=== PATIENT | male | born 1985 | race African-American/Black ===

== ENCOUNTER 2020-07-02 17:50 | Observation (INO) | payer OTHER ==
[2020-07-02 18:12] VITALS: BMI 20.1
[2020-07-02] MEDS ORDERED: ACETAMINOPHEN 1000 MG/100 ML VIAL (NON FORMULARY) IVPB ONE (18:52)
[2020-07-02] MEDS ORDERED: ACETAMINOPHEN INJECTION 100 ML IVPB ONE (19:44)
[2020-07-02 20:18] LABS: BASO % 0.6 % (0-2.0); EOS % 1.2 % (0-4.5); LYMPH % 8.7 % (8-40); MCH 28.3 pg (25.7-33.7); MCHC 32.3 g/dl (32.0-35.9); MEAN CELL VOLUME 87.7 fl (80-96); MEAN PLT VOLUME 7.2 fl (7.5-11.1); MONO % 16.6 % (3.8-10.2); NEUT % 72.9 % (42.8-82.8); PLATELET COUNT 545 K/MM3 (134-434); RBC 2.17 M/mm3 (4.00-5.60); RDW 18.7 % (11.9-15.9); WHITE BLOOD COUNT 7.4 K/mm3 (4.0-10.0)
[2020-07-02 20:25] LABS: INR 1.77 (0.83-1.09); PROTHROMBIN TIME (PATIENT) 21.4 SEC (9.7-13.0)
[2020-07-02 20:28] LABS: ACTIVATED PTT 32.1 SECONDS (25.2-36.5)
[2020-07-02 20:31] LABS: HEMOGLOBIN 6.2 GM/dL (11.7-16.9)
[2020-07-02 20:51] LABS: POTASSIUM 3.9 mmol/L (3.5-5.1)
[2020-07-02 20:53] LABS: CALCIUM 8.2 mg/dL (8.5-10.1)
[2020-07-02 20:54] LABS: ALBUMIN 1.8 g/dl (3.4-5.0); BLOOD UREA NITROGEN 21.1 mg/dL (7-18)
[2020-07-02 20:59] LABS: BILIRUBIN,TOTAL 1.2 mg/dL (0.2-1)
[2020-07-02] MEDS ORDERED: ACETAMINOPHEN 325 MG TABLET (FP) PO PRN ×2 (21:41→22:03)
[2020-07-02] MEDS ORDERED: guaiFENesin 200 MG/10 ML 10 ML UNIT-DOSE CUPS PO PRN (21:41)
[2020-07-02] MEDS: hydrALAZINE HCL 50 MG TABLET (FP) PO SCH (22:18)
[2020-07-02] MEDS: CARVEDILOL 25 MG TABLET (FP) PO SCH (22:18)
[2020-07-03 06:02] LABS: HEMATOCRIT 22.9 % (35.4-49); HEMOGLOBIN 7.2 GM/dL (11.7-16.9); MCH 27.2 pg (25.7-33.7); MCHC 31.6 g/dl (32.0-35.9); MEAN PLT VOLUME 6.9 fl (7.5-11.1); PLATELET COUNT 540 K/MM3 (134-434); RBC 2.67 M/mm3 (4.00-5.60); RDW 17.3 % (11.9-15.9); WHITE BLOOD COUNT 7.8 K/mm3 (4.0-10.0)
[2020-07-03] MEDS ORDERED: hydrALAZINE HCL 25 MG TABLET (FP) ONE (06:05)
[2020-07-03] MEDS: hydrALAZINE HCL 50 MG TABLET (FP) PO SCH ×3 (06:09→21:29)
[2020-07-03 06:19] LABS: POTASSIUM 3.9 mmol/L (3.5-5.1)
[2020-07-03 06:21] LABS: CALCIUM 8.3 mg/dL (8.5-10.1)
[2020-07-03 06:22] LABS: ALBUMIN 1.7 g/dl (3.4-5.0)
[2020-07-03 06:24] LABS: CREATININE 4.9 mg/dL (0.55-1.3)
[2020-07-03 06:26] LABS: BILIRUBIN,TOTAL 1.6 mg/dL (0.2-1); TOT PROT 7.6 g/dl (6.4-8.2)
[2020-07-03] MEDS: CALCITRIOL 0.25 MCG CAPSULE (FP) PO SCH (09:41)
[2020-07-03] MEDS: FOLIC ACID 1 MG TABLET (FP) PO SCH (09:42)
[2020-07-03] MEDS: CYANOCOBALAMIN 1,000 MCG TABLET (FP) PO SCH (09:42)
[2020-07-03] MEDS: SEVELAMER CARBONATE 800 MG TAB (FP) PO SCH ×3 (09:42→18:11)
[2020-07-03] MEDS: SERTRALINE HCL 25 MG TABLET (FP) PO SCH (09:43)
[2020-07-03] MEDS: CARVEDILOL 25 MG TABLET (FP) PO SCH ×2 (09:43→21:29)
[2020-07-03] MEDS: ISOSORBIDE MONONITRATE 30 MG TAB.SR.24H (FP) PO SCH (09:43)
[2020-07-03] MEDS: amLODIPine BESYLATE 5 MG TABLET (FP) PO SCH (09:43)
[2020-07-03] MEDS: VITAMIN B COMPLEX W/C COMBO TABLET (FP) PO SCH (14:43)
[2020-07-03] MEDS ORDERED: ONDANSETRON 4 MG/2 ML VIAL IVPUSH PRN (21:47)
[2020-07-04] MEDS: hydrALAZINE HCL 50 MG TABLET (FP) PO SCH ×3 (06:10→21:51)
[2020-07-04 06:52] LABS: BASO % 0.3 % (0-2.0); EOS % 1.5 % (0-4.5); HEMATOCRIT 25.2 % (35.4-49); HEMOGLOBIN 8.4 GM/dL (11.7-16.9); LYMPH % 9.2 % (8-40); MCH 28.4 pg (25.7-33.7); MCHC 33.5 g/dl (32.0-35.9); MEAN CELL VOLUME 84.7 fl (80-96); MEAN PLT VOLUME 6.9 fl (7.5-11.1); MONO % 13.8 % (3.8-10.2); NEUT % 75.2 % (42.8-82.8); PLATELET COUNT 533 K/MM3 (134-434); RBC 2.97 M/mm3 (4.00-5.60); WHITE BLOOD COUNT 8.1 K/mm3 (4.0-10.0)
[2020-07-04] MEDS: SEVELAMER CARBONATE 800 MG TAB (FP) PO SCH ×3 (08:35→16:43)
[2020-07-04] MEDS: VITAMIN B COMPLEX W/C COMBO TABLET (FP) PO SCH (09:16)
[2020-07-04] MEDS: CYANOCOBALAMIN 1,000 MCG TABLET (FP) PO SCH (09:17)
[2020-07-04] MEDS: CARVEDILOL 25 MG TABLET (FP) PO SCH ×2 (09:17→21:51)
[2020-07-04] MEDS: ISOSORBIDE MONONITRATE 30 MG TAB.SR.24H (FP) PO SCH (09:17)
[2020-07-04] MEDS: CALCITRIOL 0.25 MCG CAPSULE (FP) PO SCH (09:17)
[2020-07-04] MEDS: SERTRALINE HCL 25 MG TABLET (FP) PO SCH (09:17)
[2020-07-04] MEDS: FOLIC ACID 1 MG TABLET (FP) PO SCH (09:18)
[2020-07-04] MEDS: amLODIPine BESYLATE 5 MG TABLET (FP) PO SCH (09:18)
[2020-07-05] MEDS: hydrALAZINE HCL 50 MG TABLET (FP) PO SCH ×2 (06:20→17:25)
[2020-07-05] MEDS: SEVELAMER CARBONATE 800 MG TAB (FP) PO SCH ×3 (08:27→17:25)
[2020-07-05] MEDS ORDERED: PT OWN MED DRAWER 7, Y5N ONE (10:27)
[2020-07-05] MEDS: ISOSORBIDE MONONITRATE 30 MG TAB.SR.24H (FP) PO SCH (10:29)
[2020-07-05] MEDS: FOLIC ACID 1 MG TABLET (FP) PO SCH (10:29)
[2020-07-05] MEDS: CARVEDILOL 25 MG TABLET (FP) PO SCH (10:29)
[2020-07-05] MEDS: CALCITRIOL 0.25 MCG CAPSULE (FP) PO SCH (10:30)
[2020-07-05] MEDS: amLODIPine BESYLATE 5 MG TABLET (FP) PO SCH (10:30)
[2020-07-05] MEDS: CYANOCOBALAMIN 1,000 MCG TABLET (FP) PO SCH (10:31)
[2020-07-05] MEDS: VITAMIN B COMPLEX W/C COMBO TABLET (FP) PO SCH (10:32)
[2020-07-05] MEDS: SERTRALINE HCL 25 MG TABLET (FP) PO SCH (10:33)
[2020-07-05] MEDS ORDERED: SODIUM CHLORIDE 250 ML IV PRN (13:05)
[2020-07-05] MEDS ORDERED: EPOETIN ALFA 10,000 UNIT/1 ML VIAL IVPUSH ONE (13:15)
[2020-07-05] MEDS ORDERED: EPOETIN ALFA-EPBX 10,000 UNIT/ML VIAL IVPUSH ONE (13:15)
[2020-07-05 19:37] VITALS: BP 136/83; PULSE 84; TEMP 98.4
[2020-07-06] MEDS ORDERED: ERGOCALCIFEROL (VIT D2) 50,000 UNIT (1.25 MG) CAPSULE PO SCH (10:00)
[2020-07-10 01:07] LABS: HEP B CORE AB, TOT Negative (Negative)
== END 2020-07-05 20:12 ==
LOC: JER 17:50 → INTOOBSV 21:36 → UNDOADMOB 21:36 → JERBED 21:36 → J8W 07-03 08:22 → JERBED 07-03 08:22 → J8W 07-03 10:11 → JERBED 07-03 10:11 → J8W 07-05 13:55 → JERBED 07-05 13:55
PROVIDERS: ADMIT Internal Medicine; ATTEND Internal Medicine
PROC: 3E033NZ Introduction of Analgesics, Hypnotics, Sedatives into Peripheral Vein, Percutaneous Approach (ICD-10-PCS; principal; 2020-07-05)
DX: I13.11 Hypertensive heart and chronic kidney disease without heart failure, with stage 5 chronic kidney disease, or end stage renal disease (principal); N18.6 End stage renal disease; Z99.2 Dependence on renal dialysis; D64.9 Anemia, unspecified; F32.9 Major depressive disorder, single episode, unspecified; R18.8 Other ascites; I25.10 Atherosclerotic heart disease of native coronary artery without angina pectoris
CPT/HCPCS: 36415; 36430; 71046-TC-FY; 80053; 82607; 82746; 83540; 83550; 83605; 84443; 85025; 85027; 85610; 85730; 86704; 86706; 86707; 86708; 86709; 86803; 86850; 86900; 86901; 86922; 87040; 87340; 87804; 93005; 93010; 96360; 99285-25; C9803; G0378; J0131; P9038; P9058; Q5106; U0003

== ENCOUNTER 2020-09-27 18:25 | Emergency (ER) | payer OTHER ==
[2020-09-27 19:17] VITALS: BMI 27.2
[2020-09-27 20:23] LABS: BASO % 0.8 % (0-2.0); EOS % 2.9 % (0-4.5); HEMATOCRIT 18.9 % (35.4-49); MCH 29.2 pg (25.7-33.7); MCHC 34.2 g/dl (32.0-35.9); MEAN CELL VOLUME 85.4 fl (80-96); MEAN PLT VOLUME 6.7 fl (7.5-11.1); MONO % 13.3 % (3.8-10.2); PLATELET COUNT 424 K/MM3 (134-434); RBC 2.21 M/mm3 (4.00-5.60); RDW 17.8 % (11.9-15.9); RETICULOCYTES 1.79 % (0.5-1.5); WHITE BLOOD COUNT 6.7 K/mm3 (4.0-10.0)
[2020-09-27 20:30] LABS: INR 1.63 (0.83-1.09); PROTHROMBIN TIME (PATIENT) 19.4 SEC (9.7-13.0)
[2020-09-27 20:31] LABS: HEMOGLOBIN 6.5 GM/dL (11.7-16.9)
[2020-09-27 20:33] LABS: ACTIVATED PTT 32.9 SECONDS (25.2-36.5)
[2020-09-27 20:42] LABS: CHLORIDE 96 mmol/L (98-107); POTASSIUM 3.8 mmol/L (3.5-5.1); SODIUM 133 mmol/L (136-145)
[2020-09-27 20:43] LABS: ANION GAP 8 MMOL/L (8-16); BLOOD UREA NITROGEN 24.9 mg/dL (7-18); CALCIUM 8.8 mg/dL (8.5-10.1); CO2 30 mmol/L (21-32)
[2020-09-27 20:44] LABS: GLUCOSE,RANDOM 112 mg/dL (74-106)
[2020-09-27 20:46] LABS: BILIRUBIN,DIRECT 0.5 mg/dL (0.0-0.2)
[2020-09-27 20:48] LABS: BILIRUBIN,TOTAL 0.7 mg/dL (0.2-1)
[2020-09-27 20:49] LABS: CREATININE 4.6 mg/dL (0.55-1.3); IRON SERUM 29 ug/dL (50-175); SGOT/AST 14 U/L (15-37); SGPT/ALT 15 U/L (13-61); TOTAL IRON BINDING CAPACITY 123 ug/dL (250-450)
[2020-09-27 20:50] LABS: ALK PHOS 695 U/L (45-117); TOT PROT 8.1 g/dl (6.4-8.2)
[2020-09-27 21:06] LABS: LDH 166 U/L (87-246)
[2020-09-28 09:38] VITALS: BP 147/94; PULSE 91; TEMP 98.5
== END 2020-09-28 09:30 ==
LOC: JER 18:25
DX: N18.6 End stage renal disease (principal); R18.8 Other ascites; D64.9 Anemia, unspecified
CPT/HCPCS: 36415; 36430; 71046-TC-FY; 80053; 82248; 82550; 82607; 82728; 82746; 83010; 83540; 83550; 83615; 84443; 84484; 85025; 85045; 85610; 85730; 86850; 86900; 86901; 86922; 93005; 93010; 99284-25; C9803; P9058; U0003

== ENCOUNTER → 2020-10-12 | Day surgery (SDC) | payer OTHER ==
[2020-10-12 14:39] LABS: BF WBC & OTHER NUCLEATED CELLS 10194 /mm3
[2020-10-12 15:43] LABS: BODY FLUID MONOCYTE 4 %
[2020-10-12 15:44] LABS: BODY FLUID MACROPHAGES 6 %
[2020-10-13 14:12] LABS: BODY FLUID ALBUMIN 1.9 g/dL (Not Estab.)
== END | disposition home or self-care (01) ==
LOC: JRADIR 11:06
PROVIDERS: ATTEND Internal Medicine
PROC: 0W9G3ZX Drainage of Peritoneal Cavity, Percutaneous Approach, Diagnostic (ICD-10-PCS; principal; 2020-10-12)
DX: R18.8 Other ascites (principal)
CPT/HCPCS: 36415; 49083; 76942-TC; 82042; 82150; 82465; 82945; 83615; 83986; 84157; 84478; 87070; 87075; 87102; 87116; 87205; 87206; 87210; 88108; 88305-TC

== ENCOUNTER 2020-10-29 23:19 | Inpatient (IN) | payer OTHER ==
[2020-10-30] MEDS ORDERED: FAMOTIDINE 20 MG/50 ML IVPB 20 MG/50 ML MG IVPB ONE ×2 (01:31→02:19)
[2020-10-30 02:56] LABS: VENOUS BASE EXCESS 0.7 mmol/L (-2-2); VENOUS O2 SATURATION 90.1 % (70-80); VENOUS PCO2 38.7 mmHg (38-52); VENOUS PH 7.428 (7.310-7.410)
[2020-10-30 03:02] LABS: BASO % 0.7 % (0-2.0); EOS % 0.3 % (0-4.5); HEMATOCRIT 29.3 % (35.4-49); HEMOGLOBIN 10.1 GM/dL (11.7-16.9); LYMPH % 4.4 % (8-40); MCHC 34.3 g/dl (32.0-35.9); MEAN CELL VOLUME 87.4 fl (80-96); MEAN PLT VOLUME 7.3 fl (7.5-11.1); MONO % 12.1 % (3.8-10.2); NEUT % 82.5 % (42.8-82.8); PLATELET COUNT 475 K/MM3 (134-434); RBC 3.35 M/mm3 (4.00-5.60); RDW 18.8 % (11.9-15.9); WHITE BLOOD COUNT 7.3 K/mm3 (4.0-10.0)
[2020-10-30 03:09] LABS: CALCIUM 9.1 mg/dL (8.5-10.1)
[2020-10-30 03:10] LABS: ALBUMIN 2.3 g/dl (3.4-5.0); BLOOD UREA NITROGEN 28.8 mg/dL (7-18); MAGNESIUM 2.5 mg/dL (1.8-2.4)
[2020-10-30 03:12] LABS: CREATININE 5.3 mg/dL (0.55-1.3)
[2020-10-30 03:13] LABS: BILIRUBIN,TOTAL 1.4 mg/dL (0.2-1); TOT PROT 9.2 g/dl (6.4-8.2)
[2020-10-30 03:20] LABS: INR 1.47 (0.83-1.09); PROTHROMBIN TIME (PATIENT) 17.6 SEC (9.7-13.0)
[2020-10-30 03:23] LABS: ACTIVATED PTT 35.7 SECONDS (25.2-36.5)
[2020-10-30] MEDS ORDERED: ACETAMINOPHEN 325 MG TABLET (FP) PO PRN (12:07)
[2020-10-30] MEDS: hydrALAZINE HCL 50 MG TABLET (FP) PO SCH ×2 (14:02→22:19)
[2020-10-30] MEDS: SEVELAMER CARBONATE 800 MG TAB (FP) PO SCH ×2 (14:02→17:50)
[2020-10-30] MEDS ORDERED: GABAPENTIN 100 MG CAPSULE ONE (22:11)
[2020-10-30] MEDS ORDERED: CARVEDILOL 12.5 MG TABLET (FP) ONE (22:11)
[2020-10-30] MEDS ORDERED: hydrALAZINE HCL 25 MG TABLET (FP) ONE (22:11)
[2020-10-30] MEDS: CARVEDILOL 25 MG TABLET (FP) PO SCH (22:19)
[2020-10-30] MEDS: GABAPENTIN 100 MG CAPSULE PO SCH (22:19)
[2020-10-31] MEDS: hydrALAZINE HCL 50 MG TABLET (FP) PO SCH ×3 (05:55→21:05)
[2020-10-31] MEDS: CALCITRIOL 0.25 MCG CAPSULE (FP) PO SCH (09:36)
[2020-10-31] MEDS: CARVEDILOL 25 MG TABLET (FP) PO SCH ×2 (09:37→21:04)
[2020-10-31] MEDS: amLODIPine BESYLATE 5 MG TABLET (FP) PO SCH (09:37)
[2020-10-31] MEDS: SERTRALINE HCL 25 MG TABLET (FP) PO SCH (09:37)
[2020-10-31] MEDS: ISOSORBIDE MONONITRATE 30 MG TAB.SR.24H (FP) PO SCH (09:37)
[2020-10-31] MEDS: GABAPENTIN 100 MG CAPSULE PO SCH ×2 (09:37→21:04)
[2020-10-31] MEDS: SEVELAMER CARBONATE 800 MG TAB (FP) PO SCH ×3 (09:37→16:34)
[2020-10-31] MEDS ORDERED: SODIUM CHLORIDE 250 ML IV PRN (11:00)
[2020-10-31] MEDS ORDERED: PHYTONADIONE 5 MG TABLET PO ONE (12:00)
[2020-11-01] MEDS: hydrALAZINE HCL 50 MG TABLET (FP) PO SCH ×3 (05:22→21:46)
[2020-11-01] MEDS: SEVELAMER CARBONATE 800 MG TAB (FP) PO SCH ×3 (09:35→17:10)
[2020-11-01 09:52] LABS: HEMATOCRIT 28.7 % (35.4-49); HEMOGLOBIN 9.7 GM/dL (11.7-16.9); MCH 29.2 pg (25.7-33.7); MCHC 33.7 g/dl (32.0-35.9); MEAN CELL VOLUME 86.6 fl (80-96); MEAN PLT VOLUME 6.6 fl (7.5-11.1); PLATELET COUNT 405 K/MM3 (134-434); RBC 3.32 M/mm3 (4.00-5.60); RDW 18.5 % (11.9-15.9)
[2020-11-01] MEDS: SERTRALINE HCL 25 MG TABLET (FP) PO SCH (10:00)
[2020-11-01] MEDS: CARVEDILOL 25 MG TABLET (FP) PO SCH ×2 (10:00→21:46)
[2020-11-01] MEDS: ALBUMIN HUMAN 25% 12.5 GM/50 ML VIAL IVPB SCH ×4 (10:00→11:30)
[2020-11-01] MEDS: CALCITRIOL 0.25 MCG CAPSULE (FP) PO SCH (10:00)
[2020-11-01] MEDS: GABAPENTIN 100 MG CAPSULE PO SCH ×2 (10:00→21:46)
[2020-11-01] MEDS: amLODIPine BESYLATE 5 MG TABLET (FP) PO SCH (10:00)
[2020-11-01] MEDS: ISOSORBIDE MONONITRATE 30 MG TAB.SR.24H (FP) PO SCH (10:00)
[2020-11-01 10:11] LABS: CHLORIDE 93 mmol/L (98-107); SODIUM 127 mmol/L (136-145)
[2020-11-01 10:21] LABS: CALCIUM 8.6 mg/dL (8.5-10.1)
[2020-11-01 10:22] LABS: ALBUMIN 2.5 g/dl (3.4-5.0); ANION GAP 13 MMOL/L (8-16); CO2 21 mmol/L (21-32); GLUCOSE,RANDOM 133 mg/dL (74-106)
[2020-11-01 10:25] LABS: SGOT/AST 7 U/L (15-37); SGPT/ALT 16 U/L (13-61)
[2020-11-01 10:27] LABS: TOT PROT 8.5 g/dl (6.4-8.2)
[2020-11-01 10:28] LABS: ALK PHOS 614 U/L (45-117); BLOOD UREA NITROGEN 66.6 mg/dL (7-18); CREATININE 8.8 mg/dL (0.55-1.3)
[2020-11-01 12:26] LABS: LDH 136 U/L (87-246)
[2020-11-02] MEDS: hydrALAZINE HCL 50 MG TABLET (FP) PO SCH ×3 (06:18→21:22)
[2020-11-02] MEDS ORDERED: PT OWN MED DRAWER 7, Y5N ONE (13:40)
[2020-11-02] MEDS: ISOSORBIDE MONONITRATE 30 MG TAB.SR.24H (FP) PO SCH (13:50)
[2020-11-02] MEDS: amLODIPine BESYLATE 5 MG TABLET (FP) PO SCH (13:50)
[2020-11-02] MEDS: GABAPENTIN 100 MG CAPSULE PO SCH ×2 (13:50→21:22)
[2020-11-02] MEDS: CARVEDILOL 25 MG TABLET (FP) PO SCH ×2 (13:50→21:22)
[2020-11-02] MEDS: SEVELAMER CARBONATE 800 MG TAB (FP) PO SCH ×3 (13:51→18:05)
[2020-11-02] MEDS: CALCITRIOL 0.25 MCG CAPSULE (FP) PO SCH (13:51)
[2020-11-02] MEDS: SERTRALINE HCL 25 MG TABLET (FP) PO SCH (13:51)
[2020-11-02 15:30] LABS: BF WBC & OTHER NUCLEATED CELLS 1530 /mm3; BODY FLUID MACROPHAGES 10 %; BODY FLUID MESOTHELIAL 1 %; BODY FLUID MONOCYTE 5 %
[2020-11-02] MEDS ORDERED: DEXTROSE 5%-WATER 100 ML IVPB ONE (17:55)
[2020-11-02] MEDS: CEFTRIAXONE 2 GM in DEXTROSE 5%-WATER 100 ML IVPB SCH (18:05)
[2020-11-03] MEDS: hydrALAZINE HCL 50 MG TABLET (FP) PO SCH ×3 (05:34→21:10)
[2020-11-03] MEDS ORDERED: DEXTROSE 5%-WATER 100 ML IVPB ONE (11:36)
[2020-11-03] MEDS ORDERED: PT OWN MED DRAWER 7, Y5N ONE (11:36)
[2020-11-03] MEDS: ISOSORBIDE MONONITRATE 30 MG TAB.SR.24H (FP) PO SCH (11:38)
[2020-11-03] MEDS: CARVEDILOL 25 MG TABLET (FP) PO SCH ×2 (11:38→21:10)
[2020-11-03] MEDS: CALCITRIOL 0.25 MCG CAPSULE (FP) PO SCH (11:39)
[2020-11-03] MEDS: SEVELAMER CARBONATE 800 MG TAB (FP) PO SCH ×3 (11:39→18:29)
[2020-11-03] MEDS: amLODIPine BESYLATE 5 MG TABLET (FP) PO SCH (11:39)
[2020-11-03] MEDS: GABAPENTIN 100 MG CAPSULE PO SCH ×2 (11:39→21:10)
[2020-11-03] MEDS: CEFTRIAXONE 2 GM in DEXTROSE 5%-WATER 100 ML IVPB SCH (11:40)
[2020-11-03] MEDS: SERTRALINE HCL 25 MG TABLET (FP) PO SCH (11:40)
[2020-11-03 14:49] LABS: BASO % 0.5 % (0-2.0); EOS % 1.1 % (0-4.5); HEMATOCRIT 26.2 % (35.4-49); HEMOGLOBIN 8.7 GM/dL (11.7-16.9); LYMPH % 6.7 % (8-40); MCH 28.9 pg (25.7-33.7); MCHC 33.2 g/dl (32.0-35.9); MEAN PLT VOLUME 6.7 fl (7.5-11.1); MONO % 11.4 % (3.8-10.2); NEUT % 80.3 % (42.8-82.8); PLATELET COUNT 400 K/MM3 (134-434); RBC 3.01 M/mm3 (4.00-5.60); RDW 18.4 % (11.9-15.9)
[2020-11-03] MEDS ORDERED: SODIUM CHLORIDE 250 ML IV PRN (14:53)
[2020-11-03] MEDS ORDERED: EPOETIN ALFA-EPBX 3,000 UNIT/ML VIAL SQ ONE (15:00)
[2020-11-03 15:10] LABS: CHLORIDE 91 mmol/L (98-107); SODIUM 127 mmol/L (136-145)
[2020-11-03 15:12] LABS: ALBUMIN 2.1 g/dl (3.4-5.0); ANION GAP 12 MMOL/L (8-16); BLOOD UREA NITROGEN 58.4 mg/dL (7-18); CALCIUM 8.4 mg/dL (8.5-10.1); CO2 24 mmol/L (21-32)
[2020-11-03 15:13] LABS: GLUCOSE,RANDOM 136 mg/dL (74-106)
[2020-11-03 15:15] LABS: SGOT/AST 7 U/L (15-37); SGPT/ALT 12 U/L (13-61)
[2020-11-03 15:17] LABS: BILIRUBIN,TOTAL 0.6 mg/dL (0.2-1); TOT PROT 7.4 g/dl (6.4-8.2)
[2020-11-03 15:21] LABS: ALK PHOS 535 U/L (45-117); CREATININE 8.2 mg/dL (0.55-1.3)
[2020-11-04] MEDS: hydrALAZINE HCL 50 MG TABLET (FP) PO SCH ×3 (05:54→21:23)
[2020-11-04] MEDS ORDERED: DEXTROSE 5%-WATER 100 ML IVPB ONE (10:29)
[2020-11-04] MEDS: CALCITRIOL 0.25 MCG CAPSULE (FP) PO SCH (10:50)
[2020-11-04] MEDS: GABAPENTIN 100 MG CAPSULE PO SCH ×2 (10:50→21:23)
[2020-11-04] MEDS: ISOSORBIDE MONONITRATE 30 MG TAB.SR.24H (FP) PO SCH (10:51)
[2020-11-04] MEDS: CEFTRIAXONE 2 GM in DEXTROSE 5%-WATER 100 ML IVPB SCH (10:51)
[2020-11-04] MEDS: amLODIPine BESYLATE 5 MG TABLET (FP) PO SCH (10:51)
[2020-11-04] MEDS: CARVEDILOL 25 MG TABLET (FP) PO SCH ×2 (10:51→21:23)
[2020-11-04] MEDS: SERTRALINE HCL 25 MG TABLET (FP) PO SCH (10:51)
[2020-11-04] MEDS: SEVELAMER CARBONATE 800 MG TAB (FP) PO SCH ×3 (10:54→16:51)
[2020-11-04] MEDS ORDERED: SODIUM CHLORIDE 250 ML IV PRN (11:05)
[2020-11-04 13:36] LABS: HIV INTERPRETATION NEGATIVE (NEGATIVE)
[2020-11-05] MEDS: hydrALAZINE HCL 50 MG TABLET (FP) PO SCH ×3 (05:30→21:00)
[2020-11-05 08:07] LABS: BASO % 0.5 % (0-2.0); EOS % 3.1 % (0-4.5); HEMATOCRIT 27.5 % (35.4-49); HEMOGLOBIN 9.3 GM/dL (11.7-16.9); LYMPH % 6.2 % (8-40); MCH 29.3 pg (25.7-33.7); MCHC 33.9 g/dl (32.0-35.9); MEAN CELL VOLUME 86.4 fl (80-96); MEAN PLT VOLUME 6.6 fl (7.5-11.1); MONO % 12.9 % (3.8-10.2); NEUT % 77.3 % (42.8-82.8); PLATELET COUNT 393 K/MM3 (134-434); RBC 3.18 M/mm3 (4.00-5.60); RDW 18.7 % (11.9-15.9); WHITE BLOOD COUNT 6.2 K/mm3 (4.0-10.0)
[2020-11-05 08:52] LABS: ALBUMIN 2.4 g/dl (3.4-5.0); BILIRUBIN,TOTAL 0.6 mg/dL (0.2-1); BLOOD UREA NITROGEN 48.7 mg/dL (7-18); CALCIUM 8.5 mg/dL (8.5-10.1); CREATININE 7.3 mg/dL (0.55-1.3); TOT PROT 8.3 g/dl (6.4-8.2)
[2020-11-05] MEDS: SEVELAMER CARBONATE 800 MG TAB (FP) PO SCH ×3 (09:07→16:29)
[2020-11-05] MEDS: CARVEDILOL 25 MG TABLET (FP) PO SCH ×2 (10:00→21:00)
[2020-11-05] MEDS: CALCITRIOL 0.25 MCG CAPSULE (FP) PO SCH (10:00)
[2020-11-05] MEDS: ISOSORBIDE MONONITRATE 30 MG TAB.SR.24H (FP) PO SCH (10:00)
[2020-11-05] MEDS: amLODIPine BESYLATE 5 MG TABLET (FP) PO SCH (10:00)
[2020-11-05] MEDS: SERTRALINE HCL 25 MG TABLET (FP) PO SCH (10:00)
[2020-11-05] MEDS: GABAPENTIN 100 MG CAPSULE PO SCH ×2 (10:00→21:00)
[2020-11-05] MEDS ORDERED: EPOETIN ALFA-EPBX 10,000 UNIT/ML VIAL SQ ONE (11:05)
[2020-11-05] MEDS: CEFTRIAXONE 2 GM in DEXTROSE 5%-WATER 100 ML IVPB SCH (15:00)
[2020-11-05 15:11] LABS: BODY FLUID ALBUMIN 1.9 g/dL (Not Estab.)
[2020-11-06] MEDS: hydrALAZINE HCL 50 MG TABLET (FP) PO SCH ×3 (05:22→22:36)
[2020-11-06] MEDS ORDERED: PT OWN MED DRAWER 7, Y5N ONE ×3 (09:49→21:24)
[2020-11-06] MEDS ORDERED: DEXTROSE 5%-WATER 100 ML IVPB ONE (09:50)
[2020-11-06] MEDS: GABAPENTIN 100 MG CAPSULE PO SCH ×2 (10:05→22:35)
[2020-11-06] MEDS: ISOSORBIDE MONONITRATE 30 MG TAB.SR.24H (FP) PO SCH (10:05)
[2020-11-06] MEDS: SERTRALINE HCL 25 MG TABLET (FP) PO SCH (10:05)
[2020-11-06] MEDS: SEVELAMER CARBONATE 800 MG TAB (FP) PO SCH ×3 (10:05→17:37)
[2020-11-06] MEDS: amLODIPine BESYLATE 5 MG TABLET (FP) PO SCH (10:05)
[2020-11-06] MEDS: CEFTRIAXONE 2 GM in DEXTROSE 5%-WATER 100 ML IVPB SCH (10:05)
[2020-11-06] MEDS: CARVEDILOL 25 MG TABLET (FP) PO SCH ×2 (10:05→22:35)
[2020-11-06] MEDS: CALCITRIOL 0.25 MCG CAPSULE (FP) PO SCH (10:05)
[2020-11-06 13:53] LABS: N-TERMINAL BNP 59634.3 pg/ml (5-125)
[2020-11-06] MEDS: SACUBITRIL/VALSARTAN 24 MG-26 MG TABLET PO SCH ×2 (14:27→22:35)
[2020-11-07] MEDS: hydrALAZINE HCL 50 MG TABLET (FP) PO SCH ×3 (05:58→21:28)
[2020-11-07] MEDS ORDERED: PT OWN MED DRAWER 7, Y5N ONE ×2 (08:54→21:04)
[2020-11-07] MEDS ORDERED: DEXTROSE 5%-WATER 100 ML IVPB ONE (08:54)
[2020-11-07] MEDS: SEVELAMER CARBONATE 800 MG TAB (FP) PO SCH ×3 (08:59→16:51)
[2020-11-07] MEDS: GABAPENTIN 100 MG CAPSULE PO SCH ×2 (09:01→21:28)
[2020-11-07] MEDS: CEFTRIAXONE 2 GM in DEXTROSE 5%-WATER 100 ML IVPB SCH (09:02)
[2020-11-07] MEDS: amLODIPine BESYLATE 5 MG TABLET (FP) PO SCH (09:02)
[2020-11-07] MEDS: ISOSORBIDE MONONITRATE 30 MG TAB.SR.24H (FP) PO SCH (09:02)
[2020-11-07] MEDS: CARVEDILOL 25 MG TABLET (FP) PO SCH ×2 (09:02→21:28)
[2020-11-07] MEDS: CALCITRIOL 0.25 MCG CAPSULE (FP) PO SCH (09:02)
[2020-11-07] MEDS: SACUBITRIL/VALSARTAN 24 MG-26 MG TABLET PO SCH ×2 (09:02→21:28)
[2020-11-07] MEDS: SERTRALINE HCL 25 MG TABLET (FP) PO SCH (09:02)
[2020-11-08] MEDS: hydrALAZINE HCL 50 MG TABLET (FP) PO SCH ×3 (06:55→21:59)
[2020-11-08] MEDS ORDERED: EPOETIN ALFA-EPBX 4,000 UNIT/ML VIAL SQ ONE (08:49)
[2020-11-08] MEDS ORDERED: SODIUM CHLORIDE 250 ML IV PRN (08:50)
[2020-11-08 09:05] LABS: HEMATOCRIT 25.6 % (35.4-49); HEMOGLOBIN 8.8 GM/dL (11.7-16.9); MCH 29.8 pg (25.7-33.7); MCHC 34.5 g/dl (32.0-35.9); MEAN CELL VOLUME 86.4 fl (80-96); MEAN PLT VOLUME 7.2 fl (7.5-11.1); PLATELET COUNT 378 K/MM3 (134-434); RBC 2.96 M/mm3 (4.00-5.60); RDW 18.2 % (11.9-15.9); WHITE BLOOD COUNT 5.9 K/mm3 (4.0-10.0)
[2020-11-08 09:27] LABS: CHLORIDE 96 mmol/L (98-107); SODIUM 132 mmol/L (136-145)
[2020-11-08 09:39] LABS: GLUCOSE,RANDOM 88 mg/dL (74-106)
[2020-11-08 09:42] LABS: SGOT/AST 15 U/L (15-37); SGPT/ALT 15 U/L (13-61)
[2020-11-08 09:43] LABS: BILIRUBIN,TOTAL 0.5 mg/dL (0.2-1)
[2020-11-08 09:48] LABS: CALCIUM 8.5 mg/dL (8.5-10.1); CO2 26 mmol/L (21-32)
[2020-11-08 09:49] LABS: ALK PHOS 444 U/L (45-117); ANION GAP 10 MMOL/L (8-16); BLOOD UREA NITROGEN 78.6 mg/dL (7-18); CREATININE 9.8 mg/dL (0.55-1.3)
[2020-11-08] MEDS ORDERED: DEXTROSE 5%-WATER 100 ML IVPB ONE (10:50)
[2020-11-08] MEDS: SEVELAMER CARBONATE 800 MG TAB (FP) PO SCH ×3 (10:52→18:13)
[2020-11-08] MEDS: ISOSORBIDE MONONITRATE 30 MG TAB.SR.24H (FP) PO SCH (10:53)
[2020-11-08] MEDS: amLODIPine BESYLATE 5 MG TABLET (FP) PO SCH (10:53)
[2020-11-08] MEDS: CARVEDILOL 25 MG TABLET (FP) PO SCH ×2 (10:53→21:59)
[2020-11-08] MEDS: CEFTRIAXONE 2 GM in DEXTROSE 5%-WATER 100 ML IVPB SCH (10:53)
[2020-11-08] MEDS: GABAPENTIN 100 MG CAPSULE PO SCH ×2 (10:53→21:59)
[2020-11-08] MEDS: CALCITRIOL 0.25 MCG CAPSULE (FP) PO SCH (10:54)
[2020-11-08] MEDS: SERTRALINE HCL 25 MG TABLET (FP) PO SCH (10:54)
[2020-11-08] MEDS ORDERED: PT OWN MED DRAWER 7, Y5N ONE ×2 (14:50→20:43)
[2020-11-08] MEDS: SACUBITRIL/VALSARTAN 24 MG-26 MG TABLET PO SCH ×2 (14:50→21:59)
[2020-11-09] MEDS: hydrALAZINE HCL 50 MG TABLET (FP) PO SCH ×3 (06:11→21:13)
[2020-11-09] MEDS: SEVELAMER CARBONATE 800 MG TAB (FP) PO SCH ×3 (09:07→19:50)
[2020-11-09] MEDS ORDERED: PT OWN MED DRAWER 7, Y5N ONE ×2 (09:10→20:35)
[2020-11-09] MEDS ORDERED: DEXTROSE 5%-WATER - 50 ML IVPB ONE (09:10)
[2020-11-09] MEDS ORDERED: cefTRIAXone SODIUM 1 GM VIAL ONE (09:10)
[2020-11-09] MEDS: ISOSORBIDE MONONITRATE 30 MG TAB.SR.24H (FP) PO SCH (09:13)
[2020-11-09] MEDS: GABAPENTIN 100 MG CAPSULE PO SCH ×2 (09:13→21:13)
[2020-11-09] MEDS: SACUBITRIL/VALSARTAN 24 MG-26 MG TABLET PO SCH ×2 (09:13→21:13)
[2020-11-09] MEDS: SERTRALINE HCL 25 MG TABLET (FP) PO SCH (09:13)
[2020-11-09] MEDS: CARVEDILOL 25 MG TABLET (FP) PO SCH ×2 (09:13→21:13)
[2020-11-09] MEDS: CALCITRIOL 0.25 MCG CAPSULE (FP) PO SCH (09:13)
[2020-11-09] MEDS: amLODIPine BESYLATE 5 MG TABLET (FP) PO SCH (09:13)
[2020-11-09] MEDS: CEFTRIAXONE 1 GM in DEXTROSE 5%-WATER - 50 ML IVPB SCH (09:14)
[2020-11-09] MEDS ORDERED: SODIUM CHLORIDE 250 ML IV PRN ×2 (11:41→16:05)
[2020-11-09 14:00] LABS: INR 1.42 (0.83-1.09); PROTHROMBIN TIME (PATIENT) 17.3 SEC (9.7-13.0)
[2020-11-09 14:20] LABS: ALBUMIN 2.2 g/dl (3.4-5.0)
[2020-11-09 14:23] LABS: BILIRUBIN,DIRECT 0.4 mg/dL (0.0-0.2)
[2020-11-09 14:25] LABS: BILIRUBIN,TOTAL 0.5 mg/dL (0.2-1); TOT PROT 7.7 g/dl (6.4-8.2)
[2020-11-09] MEDS ORDERED: EPOETIN ALFA-EPBX 4,000 UNIT/ML VIAL SQ ONE (16:05)
[2020-11-10] MEDS: hydrALAZINE HCL 50 MG TABLET (FP) PO SCH ×3 (05:28→21:17)
[2020-11-10] MEDS: SEVELAMER CARBONATE 800 MG TAB (FP) PO SCH ×3 (07:53→16:33)
[2020-11-10 08:38] LABS: HEMATOCRIT 28.8 % (35.4-49); HEMOGLOBIN 9.6 GM/dL (11.7-16.9); MCH 29.3 pg (25.7-33.7); MCHC 33.2 g/dl (32.0-35.9); MEAN CELL VOLUME 88.3 fl (80-96); PLATELET COUNT 371 K/MM3 (134-434); RBC 3.26 M/mm3 (4.00-5.60); RDW 18.2 % (11.9-15.9); WHITE BLOOD COUNT 5.2 K/mm3 (4.0-10.0)
[2020-11-10] MEDS ORDERED: PT OWN MED DRAWER 7, Y5N ONE ×2 (08:53→20:16)
[2020-11-10] MEDS: CARVEDILOL 25 MG TABLET (FP) PO SCH ×2 (09:01→21:17)
[2020-11-10] MEDS: ISOSORBIDE MONONITRATE 30 MG TAB.SR.24H (FP) PO SCH (09:01)
[2020-11-10] MEDS: SACUBITRIL/VALSARTAN 24 MG-26 MG TABLET PO SCH ×2 (09:01→21:17)
[2020-11-10] MEDS: amLODIPine BESYLATE 5 MG TABLET (FP) PO SCH (09:01)
[2020-11-10] MEDS: GABAPENTIN 100 MG CAPSULE PO SCH ×2 (09:06→21:17)
[2020-11-10] MEDS: SERTRALINE HCL 25 MG TABLET (FP) PO SCH (09:07)
[2020-11-10] MEDS: CALCITRIOL 0.25 MCG CAPSULE (FP) PO SCH (09:07)
[2020-11-10] MEDS ORDERED: cefTRIAXone SODIUM 1 GM VIAL ONE ×2 (09:10→09:11)
[2020-11-10] MEDS ORDERED: DEXTROSE 5%-WATER - 50 ML IVPB ONE (09:11)
[2020-11-10] MEDS ORDERED: ONDANSETRON 4 MG/2 ML VIAL IVPUSH PRN ×2 (09:12→12:42)
[2020-11-10] MEDS ORDERED: SODIUM CHLORIDE 1,000 ML IV SCH ×2 (09:15→12:42)
[2020-11-10 09:23] LABS: ALBUMIN 2.3 g/dl (3.4-5.0); CALCIUM 8.9 mg/dL (8.5-10.1)
[2020-11-10] MEDS ORDERED: ROCURONIUM BROMIDE 50 MG/5 ML SYRINGE ONE ×2 (09:24→10:38)
[2020-11-10] MEDS ORDERED: PROPOFOL 20 ML ONE (09:24)
[2020-11-10] MEDS ORDERED: MIDAZOLAM HCL 2 MG/2 ML SINGLE DOSE VIAL ONE (09:24)
[2020-11-10] MEDS ORDERED: LIDOCAINE HCL/PF 2% SDV 5ML VIAL ONE (09:24)
[2020-11-10 09:28] LABS: BILIRUBIN,TOTAL 0.6 mg/dL (0.2-1); TOT PROT 8.2 g/dl (6.4-8.2)
[2020-11-10 09:32] LABS: BLOOD UREA NITROGEN 27.9 mg/dL (7-18)
[2020-11-10] MEDS ORDERED: cefTRIAXone SODIUM 1 GM VIAL IVPB ONE (09:40)
[2020-11-10] MEDS: CEFTRIAXONE 1 GM in DEXTROSE 5%-WATER - 50 ML IVPB SCH (10:17)
[2020-11-10] MEDS ORDERED: GLYCOPYRROLATE 0.2 MG/1 ML VIAL ONE (11:30)
[2020-11-10] MEDS ORDERED: NEOSTIGMINE METHYLSULFATE 0.5 MG/ML - 10 ML MDV ONE (11:30)
[2020-11-10] MEDS ORDERED: EPOETIN ALFA-EPBX 4,000 UNIT/ML VIAL SQ ONE (11:41)
[2020-11-10] MEDS ORDERED: HYDROmorphone HCl 2 MG/ML VIAL IVPB PRN (11:58)
[2020-11-10] MEDS ORDERED: SODIUM CHLORIDE 250 ML IV PRN (12:42)
[2020-11-10] MEDS ORDERED: ACETAMINOPHEN 325 MG TABLET (FP) PO PRN (12:42)
[2020-11-10] MEDS ORDERED: ACETAMINOPHEN INJECTION 100 ML IVPB ONE (13:12)
[2020-11-10] MEDS: ACETAMINOPHEN 1000 MG/100 ML VIAL (NON FORMULARY) IVPB SCH ×2 (13:20→17:48)
[2020-11-11] MEDS: ACETAMINOPHEN 1000 MG/100 ML VIAL (NON FORMULARY) IVPB SCH ×2 (00:06→05:19)
[2020-11-11] MEDS: hydrALAZINE HCL 50 MG TABLET (FP) PO SCH ×3 (05:19→22:05)
[2020-11-11 07:45] LABS: HEMATOCRIT 26.4 % (35.4-49); HEMOGLOBIN 8.7 GM/dL (11.7-16.9); MCHC 33.1 g/dl (32.0-35.9); MEAN CELL VOLUME 87.7 fl (80-96); PLATELET COUNT 335 K/MM3 (134-434); RBC 3.01 M/mm3 (4.00-5.60); RDW 18.3 % (11.9-15.9); WHITE BLOOD COUNT 5.8 K/mm3 (4.0-10.0)
[2020-11-11] MEDS: SEVELAMER CARBONATE 800 MG TAB (FP) PO SCH ×3 (07:52→16:57)
[2020-11-11 08:12] LABS: CALCIUM 8.8 mg/dL (8.5-10.1)
[2020-11-11 08:13] LABS: BLOOD UREA NITROGEN 40.9 mg/dL (7-18)
[2020-11-11 08:16] LABS: CREATININE 6.7 mg/dL (0.55-1.3)
[2020-11-11] MEDS ORDERED: cefTRIAXone SODIUM 1 GM VIAL ONE (08:57)
[2020-11-11] MEDS ORDERED: DEXTROSE 5%-WATER - 50 ML IVPB ONE (08:57)
[2020-11-11] MEDS ORDERED: PT OWN MED DRAWER 7, Y5N ONE (08:58)
[2020-11-11] MEDS: CEFTRIAXONE 1 GM in DEXTROSE 5%-WATER - 50 ML IVPB SCH (09:04)
[2020-11-11] MEDS: CARVEDILOL 25 MG TABLET (FP) PO SCH ×2 (09:08→22:06)
[2020-11-11] MEDS: CALCITRIOL 0.25 MCG CAPSULE (FP) PO SCH (09:08)
[2020-11-11] MEDS: SERTRALINE HCL 25 MG TABLET (FP) PO SCH (09:08)
[2020-11-11] MEDS: amLODIPine BESYLATE 5 MG TABLET (FP) PO SCH (09:08)
[2020-11-11] MEDS: GABAPENTIN 100 MG CAPSULE PO SCH ×2 (09:09→22:06)
[2020-11-11] MEDS: ISOSORBIDE MONONITRATE 30 MG TAB.SR.24H (FP) PO SCH (09:09)
[2020-11-11] MEDS: SACUBITRIL/VALSARTAN 24 MG-26 MG TABLET PO SCH ×2 (09:09→23:15)
[2020-11-11] MEDS: MINERAL OIL/PET HY-PHL TOPICAL OINTMENT 454 GM JAR TP SCH ×2 (11:07→22:06)
[2020-11-11] MEDS ORDERED: POLYETHYLENE GLYCOL 3350 119 GM BTL PO PRN (11:26)
[2020-11-11] MEDS ORDERED: SODIUM CHLORIDE 250 ML IV PRN (12:54)
[2020-11-11] MEDS ORDERED: EPOETIN ALFA-EPBX 10,000 UNIT/ML VIAL SQ ONE (13:00)
[2020-11-11] MEDS: traMADol HCL 50 MG TABLET PO PRN ×2 (16:54→22:04)
[2020-11-11] MEDS: ACETAMINOPHEN 500 MG TABLET (FP) PO SCH (18:16)
[2020-11-11] MEDS: SIMETHICONE 80 MG TAB.CHEW (FP) PO SCH ×2 (18:16→22:04)
[2020-11-11] MEDS: SPIRONOLACTONE 25 MG TABLET PO SCH (19:15)
[2020-11-11] MEDS ORDERED: ACETAMINOPHEN 500 MG TABLET (FP) PO SCH (20:30)
[2020-11-11] MEDS ORDERED: IBUPROFEN 400 MG TABLET (FP) PO ONE (22:08)
[2020-11-12] MEDS: ACETAMINOPHEN 500 MG TABLET (FP) PO SCH ×3 (00:29→11:36)
[2020-11-12] MEDS: hydrALAZINE HCL 50 MG TABLET (FP) PO SCH ×3 (06:19→21:53)
[2020-11-12] MEDS ORDERED: PT OWN MED DRAWER 7, Y5N ONE ×3 (09:34→20:05)
[2020-11-12] MEDS ORDERED: cefTRIAXone SODIUM 1 GM VIAL ONE (09:35)
[2020-11-12] MEDS ORDERED: DEXTROSE 5%-WATER - 50 ML IVPB ONE (09:35)
[2020-11-12] MEDS: SIMETHICONE 80 MG TAB.CHEW (FP) PO SCH ×4 (09:39→21:53)
[2020-11-12] MEDS: SERTRALINE HCL 25 MG TABLET (FP) PO SCH (09:39)
[2020-11-12] MEDS: SPIRONOLACTONE 25 MG TABLET PO SCH (09:39)
[2020-11-12] MEDS: GABAPENTIN 100 MG CAPSULE PO SCH ×2 (09:39→21:53)
[2020-11-12] MEDS: amLODIPine BESYLATE 5 MG TABLET (FP) PO SCH (09:39)
[2020-11-12] MEDS: CALCITRIOL 0.25 MCG CAPSULE (FP) PO SCH (09:39)
[2020-11-12] MEDS: CARVEDILOL 25 MG TABLET (FP) PO SCH ×2 (09:40→21:53)
[2020-11-12] MEDS: SACUBITRIL/VALSARTAN 24 MG-26 MG TABLET PO SCH ×2 (09:40→21:53)
[2020-11-12] MEDS: CEFTRIAXONE 1 GM in DEXTROSE 5%-WATER - 50 ML IVPB SCH (09:40)
[2020-11-12] MEDS: ISOSORBIDE MONONITRATE 30 MG TAB.SR.24H (FP) PO SCH (09:40)
[2020-11-12] MEDS: MINERAL OIL/PET HY-PHL TOPICAL OINTMENT 454 GM JAR TP SCH ×2 (09:41→21:55)
[2020-11-12] MEDS: SEVELAMER CARBONATE 800 MG TAB (FP) PO SCH ×3 (12:20→17:25)
[2020-11-12] MEDS ORDERED: ACETAMINOPHEN 325 MG TABLET (FP) PO PRN (21:00)
[2020-11-13] MEDS: traMADol HCL 50 MG TABLET PO PRN ×3 (05:44→21:53)
[2020-11-13] MEDS: hydrALAZINE HCL 50 MG TABLET (FP) PO SCH (05:46)
[2020-11-13] MEDS: SEVELAMER CARBONATE 800 MG TAB (FP) PO SCH ×3 (08:46→17:22)
[2020-11-13 09:10] LABS: HEMATOCRIT 24.3 % (35.4-49); HEMOGLOBIN 8.2 GM/dL (11.7-16.9); MCH 29.2 pg (25.7-33.7); MCHC 33.7 g/dl (32.0-35.9); MEAN CELL VOLUME 86.6 fl (80-96); MEAN PLT VOLUME 6.9 fl (7.5-11.1); PLATELET COUNT 306 K/MM3 (134-434); RDW 17.8 % (11.9-15.9); WHITE BLOOD COUNT 5.8 K/mm3 (4.0-10.0)
[2020-11-13 09:23] LABS: ALBUMIN 2.2 g/dl (3.4-5.0); BLOOD UREA NITROGEN 40.6 mg/dL (7-18); CALCIUM 8.1 mg/dL (8.5-10.1)
[2020-11-13 09:27] LABS: CREATININE 6.9 mg/dL (0.55-1.3)
[2020-11-13 09:28] LABS: BILIRUBIN,TOTAL 0.7 mg/dL (0.2-1); TOT PROT 7.2 g/dl (6.4-8.2)
[2020-11-13] MEDS ORDERED: SODIUM CHLORIDE 250 ML IV PRN (10:52)
[2020-11-13] MEDS ORDERED: EPOETIN ALFA-EPBX 4,000 UNIT/ML VIAL SQ ONE (11:00)
[2020-11-13] MEDS ORDERED: cefTRIAXone SODIUM 1 GM VIAL ONE (11:48)
[2020-11-13] MEDS ORDERED: DEXTROSE 5%-WATER - 50 ML IVPB ONE (11:48)
[2020-11-13] MEDS ORDERED: PT OWN MED DRAWER 7, Y5N ONE ×2 (11:48→20:24)
[2020-11-13] MEDS: SPIRONOLACTONE 25 MG TABLET PO SCH (11:54)
[2020-11-13] MEDS: ISOSORBIDE MONONITRATE 30 MG TAB.SR.24H (FP) PO SCH (11:54)
[2020-11-13] MEDS: GABAPENTIN 100 MG CAPSULE PO SCH ×2 (11:54→21:44)
[2020-11-13] MEDS: amLODIPine BESYLATE 5 MG TABLET (FP) PO SCH (11:54)
[2020-11-13] MEDS: SIMETHICONE 80 MG TAB.CHEW (FP) PO SCH ×4 (11:54→21:44)
[2020-11-13] MEDS: SERTRALINE HCL 25 MG TABLET (FP) PO SCH (11:55)
[2020-11-13] MEDS: CALCITRIOL 0.25 MCG CAPSULE (FP) PO SCH (11:55)
[2020-11-13] MEDS: SACUBITRIL/VALSARTAN 24 MG-26 MG TABLET PO SCH ×2 (11:55→21:44)
[2020-11-13] MEDS: CARVEDILOL 25 MG TABLET (FP) PO SCH ×2 (11:55→21:44)
[2020-11-13] MEDS: CEFTRIAXONE 1 GM in DEXTROSE 5%-WATER - 50 ML IVPB SCH (11:56)
[2020-11-13] MEDS: MINERAL OIL/PET HY-PHL TOPICAL OINTMENT 454 GM JAR TP SCH ×2 (11:59→21:46)
[2020-11-13] MEDS: hydrALAZINE HCL 25 MG TABLET (FP) PO SCH ×2 (15:10→21:43)
[2020-11-14] MEDS: hydrALAZINE HCL 25 MG TABLET (FP) PO SCH ×3 (05:43→21:19)
[2020-11-14] MEDS: SEVELAMER CARBONATE 800 MG TAB (FP) PO SCH ×3 (08:44→17:06)
[2020-11-14] MEDS ORDERED: cefTRIAXone SODIUM 1 GM VIAL ONE (08:49)
[2020-11-14] MEDS: SIMETHICONE 80 MG TAB.CHEW (FP) PO SCH ×4 (09:05→21:18)
[2020-11-14] MEDS: CALCITRIOL 0.25 MCG CAPSULE (FP) PO SCH (09:05)
[2020-11-14] MEDS: amLODIPine BESYLATE 5 MG TABLET (FP) PO SCH (09:06)
[2020-11-14] MEDS: CARVEDILOL 25 MG TABLET (FP) PO SCH ×2 (09:06→21:19)
[2020-11-14] MEDS: SERTRALINE HCL 25 MG TABLET (FP) PO SCH (09:06)
[2020-11-14] MEDS: SPIRONOLACTONE 25 MG TABLET PO SCH (09:06)
[2020-11-14] MEDS: GABAPENTIN 100 MG CAPSULE PO SCH ×2 (09:06→21:19)
[2020-11-14] MEDS: CEFTRIAXONE 1 GM in DEXTROSE 5%-WATER - 50 ML IVPB SCH (09:07)
[2020-11-14] MEDS: MINERAL OIL/PET HY-PHL TOPICAL OINTMENT 454 GM JAR TP SCH ×2 (09:08→21:19)
[2020-11-14] MEDS ORDERED: PT OWN MED DRAWER 7, Y5N ONE (09:14)
[2020-11-14] MEDS: SACUBITRIL/VALSARTAN 24 MG-26 MG TABLET PO SCH ×2 (09:16→21:19)
[2020-11-14] MEDS: ISOSORBIDE MONONITRATE 30 MG TAB.SR.24H (FP) PO SCH (09:16)
[2020-11-15] MEDS: hydrALAZINE HCL 25 MG TABLET (FP) PO SCH ×3 (05:31→21:42)
[2020-11-15] MEDS: SEVELAMER CARBONATE 800 MG TAB (FP) PO SCH ×3 (09:39→16:46)
[2020-11-15] MEDS ORDERED: EPOETIN ALFA-EPBX 4,000 UNIT/ML VIAL IVPUSH ONE (09:45)
[2020-11-15] MEDS ORDERED: cefTRIAXone SODIUM 1 GM VIAL ONE (12:49)
[2020-11-15] MEDS ORDERED: DEXTROSE 5%-WATER - 50 ML IVPB ONE (12:49)
[2020-11-15] MEDS: CALCITRIOL 0.25 MCG CAPSULE (FP) PO SCH (12:51)
[2020-11-15] MEDS: SERTRALINE HCL 25 MG TABLET (FP) PO SCH (12:52)
[2020-11-15] MEDS: SIMETHICONE 80 MG TAB.CHEW (FP) PO SCH ×4 (12:52→21:49)
[2020-11-15] MEDS: GABAPENTIN 100 MG CAPSULE PO SCH ×2 (12:52→21:42)
[2020-11-15] MEDS: amLODIPine BESYLATE 5 MG TABLET (FP) PO SCH (12:53)
[2020-11-15] MEDS: CARVEDILOL 25 MG TABLET (FP) PO SCH ×2 (12:53→21:42)
[2020-11-15] MEDS: ISOSORBIDE MONONITRATE 30 MG TAB.SR.24H (FP) PO SCH (12:53)
[2020-11-15] MEDS: SPIRONOLACTONE 25 MG TABLET PO SCH (12:54)
[2020-11-15] MEDS: MINERAL OIL/PET HY-PHL TOPICAL OINTMENT 454 GM JAR TP SCH ×2 (12:54→21:43)
[2020-11-15] MEDS: CEFTRIAXONE 1 GM in DEXTROSE 5%-WATER - 50 ML IVPB SCH (12:56)
[2020-11-15] MEDS: SACUBITRIL/VALSARTAN 24 MG-26 MG TABLET PO SCH ×2 (13:30→21:42)
[2020-11-15] MEDS ORDERED: PT OWN MED DRAWER 7, Y5N ONE (20:21)
[2020-11-16] MEDS: hydrALAZINE HCL 25 MG TABLET (FP) PO SCH ×3 (05:48→21:22)
[2020-11-16] MEDS ORDERED: PT OWN MED DRAWER 7, Y5N ONE ×2 (07:58→20:14)
[2020-11-16] MEDS: SACUBITRIL/VALSARTAN 24 MG-26 MG TABLET PO SCH ×2 (09:01→21:18)
[2020-11-16] MEDS: SEVELAMER CARBONATE 800 MG TAB (FP) PO SCH ×3 (09:01→16:36)
[2020-11-16] MEDS: amLODIPine BESYLATE 5 MG TABLET (FP) PO SCH (09:01)
[2020-11-16] MEDS: ISOSORBIDE MONONITRATE 30 MG TAB.SR.24H (FP) PO SCH (09:01)
[2020-11-16] MEDS: SIMETHICONE 80 MG TAB.CHEW (FP) PO SCH ×4 (09:01→21:18)
[2020-11-16] MEDS: GABAPENTIN 100 MG CAPSULE PO SCH ×2 (09:01→21:18)
[2020-11-16] MEDS: CARVEDILOL 25 MG TABLET (FP) PO SCH ×2 (09:01→21:18)
[2020-11-16] MEDS: SPIRONOLACTONE 25 MG TABLET PO SCH (09:01)
[2020-11-16] MEDS: SERTRALINE HCL 25 MG TABLET (FP) PO SCH (09:01)
[2020-11-16] MEDS: CALCITRIOL 0.25 MCG CAPSULE (FP) PO SCH (09:01)
[2020-11-16] MEDS: MINERAL OIL/PET HY-PHL TOPICAL OINTMENT 454 GM JAR TP SCH ×2 (09:02→21:19)
[2020-11-16] MEDS ORDERED: SODIUM CHLORIDE 250 ML IV PRN (18:47)
[2020-11-17] MEDS: hydrALAZINE HCL 25 MG TABLET (FP) PO SCH ×4 (05:13→21:20)
[2020-11-17] MEDS: SPIRONOLACTONE 25 MG TABLET PO SCH (10:28)
[2020-11-17] MEDS: SIMETHICONE 80 MG TAB.CHEW (FP) PO SCH ×4 (10:28→21:21)
[2020-11-17] MEDS: ISOSORBIDE MONONITRATE 30 MG TAB.SR.24H (FP) PO SCH ×2 (10:28→17:19)
[2020-11-17] MEDS: SACUBITRIL/VALSARTAN 24 MG-26 MG TABLET PO SCH ×2 (10:28→21:21)
[2020-11-17] MEDS: amLODIPine BESYLATE 5 MG TABLET (FP) PO SCH (10:28)
[2020-11-17] MEDS: SEVELAMER CARBONATE 800 MG TAB (FP) PO SCH ×3 (10:28→17:43)
[2020-11-17] MEDS: MINERAL OIL/PET HY-PHL TOPICAL OINTMENT 454 GM JAR TP SCH ×2 (10:28→21:22)
[2020-11-17] MEDS: CARVEDILOL 25 MG TABLET (FP) PO SCH ×2 (10:28→21:21)
[2020-11-17] MEDS: GABAPENTIN 100 MG CAPSULE PO SCH ×2 (10:28→21:21)
[2020-11-17] MEDS: SERTRALINE HCL 25 MG TABLET (FP) PO SCH (10:28)
[2020-11-17] MEDS: CALCITRIOL 0.25 MCG CAPSULE (FP) PO SCH (10:28)
[2020-11-17 11:06] LABS: HEMATOCRIT 25.9 % (35.4-49); HEMOGLOBIN 8.6 GM/dL (11.7-16.9); MCH 28.8 pg (25.7-33.7); MCHC 33.1 g/dl (32.0-35.9); MEAN CELL VOLUME 86.9 fl (80-96); MEAN PLT VOLUME 7.1 fl (7.5-11.1); PLATELET COUNT 298 K/MM3 (134-434); RBC 2.98 M/mm3 (4.00-5.60); RDW 18.1 % (11.9-15.9); WHITE BLOOD COUNT 6.1 K/mm3 (4.0-10.0)
[2020-11-17 11:24] LABS: BLOOD UREA NITROGEN 37.7 mg/dL (7-18); CALCIUM 8.3 mg/dL (8.5-10.1)
[2020-11-17 11:28] LABS: CREATININE 6.8 mg/dL (0.55-1.3)
[2020-11-17] MEDS: EPOETIN ALFA-EPBX 4,000 UNIT/ML VIAL IVPUSH ONE ×2 (12:19→12:41)
[2020-11-17] MEDS ORDERED: PT OWN MED DRAWER 7, Y5N ONE (20:29)
[2020-11-18] MEDS: hydrALAZINE HCL 25 MG TABLET (FP) PO SCH ×3 (05:54→21:18)
[2020-11-18] MEDS ORDERED: PT OWN MED DRAWER 7, Y5N ONE ×2 (09:39→20:28)
[2020-11-18] MEDS: CALCITRIOL 0.25 MCG CAPSULE (FP) PO SCH (09:42)
[2020-11-18] MEDS: CARVEDILOL 25 MG TABLET (FP) PO SCH ×2 (09:42→21:17)
[2020-11-18] MEDS: SEVELAMER CARBONATE 800 MG TAB (FP) PO SCH ×3 (09:42→17:23)
[2020-11-18] MEDS: SERTRALINE HCL 25 MG TABLET (FP) PO SCH (09:42)
[2020-11-18] MEDS: GABAPENTIN 100 MG CAPSULE PO SCH ×2 (09:42→21:17)
[2020-11-18] MEDS: amLODIPine BESYLATE 5 MG TABLET (FP) PO SCH (09:42)
[2020-11-18] MEDS: SACUBITRIL/VALSARTAN 24 MG-26 MG TABLET PO SCH ×2 (09:43→21:17)
[2020-11-18] MEDS: ISOSORBIDE MONONITRATE 30 MG TAB.SR.24H (FP) PO SCH (09:43)
[2020-11-18] MEDS: SIMETHICONE 80 MG TAB.CHEW (FP) PO SCH ×4 (09:43→21:18)
[2020-11-18] MEDS: SPIRONOLACTONE 25 MG TABLET PO SCH (09:43)
[2020-11-18] MEDS: FUROSEMIDE 40 MG TABLET (FP) PO SCH (09:43)
[2020-11-18] MEDS: MINERAL OIL/PET HY-PHL TOPICAL OINTMENT 454 GM JAR TP SCH ×2 (09:44→21:20)
[2020-11-18] MEDS ORDERED: amLODIPine BESYLATE 5 MG TABLET (FP) PO ONE (11:30)
[2020-11-18 12:40] VITALS: BMI 18.3
[2020-11-18] MEDS: AMINO ACIDS/PROTEIN HYDROLYS 30 ML LIQUID.PKT PO SCH (17:24)
[2020-11-19] MEDS: hydrALAZINE HCL 25 MG TABLET (FP) PO SCH (06:34)
[2020-11-19] MEDS ORDERED: PT OWN MED DRAWER 7, Y5N ONE ×2 (09:14→21:07)
[2020-11-19] MEDS: CARVEDILOL 25 MG TABLET (FP) PO SCH ×2 (09:15→21:00)
[2020-11-19] MEDS: SEVELAMER CARBONATE 800 MG TAB (FP) PO SCH ×4 (09:15→17:15)
[2020-11-19] MEDS: SPIRONOLACTONE 25 MG TABLET PO SCH (09:15)
[2020-11-19] MEDS: SIMETHICONE 80 MG TAB.CHEW (FP) PO SCH ×4 (09:16→21:00)
[2020-11-19] MEDS: SACUBITRIL/VALSARTAN 24 MG-26 MG TABLET PO SCH ×2 (09:16→21:13)
[2020-11-19] MEDS: ISOSORBIDE MONONITRATE 30 MG TAB.SR.24H (FP) PO SCH (09:16)
[2020-11-19] MEDS: GABAPENTIN 100 MG CAPSULE PO SCH ×2 (09:17→21:00)
[2020-11-19] MEDS: MINERAL OIL/PET HY-PHL TOPICAL OINTMENT 454 GM JAR TP SCH ×2 (09:17→21:03)
[2020-11-19] MEDS: amLODIPine BESYLATE 10 MG TABLET (FP) PO SCH (09:17)
[2020-11-19] MEDS: CALCITRIOL 0.25 MCG CAPSULE (FP) PO SCH (09:17)
[2020-11-19 11:06] LABS: HEMATOCRIT 27.4 % (35.4-49); HEMOGLOBIN 9.3 GM/dL (11.7-16.9); MCH 29.3 pg (25.7-33.7); MEAN CELL VOLUME 86.1 fl (80-96); MEAN PLT VOLUME 7.1 fl (7.5-11.1); PLATELET COUNT 306 K/MM3 (134-434); RBC 3.18 M/mm3 (4.00-5.60); RDW 17.9 % (11.9-15.9); WHITE BLOOD COUNT 7.3 K/mm3 (4.0-10.0)
[2020-11-19 11:27] LABS: BLOOD UREA NITROGEN 42.7 mg/dL (7-18); CALCIUM 8.5 mg/dL (8.5-10.1)
[2020-11-19 11:30] LABS: CREATININE 6.9 mg/dL (0.55-1.3)
[2020-11-19] MEDS ORDERED: EPOETIN ALFA-EPBX 4,000 UNIT/ML VIAL IVPUSH ONE ×2 (11:30→12:38)
[2020-11-19] MEDS ORDERED: SODIUM CHLORIDE 250 ML IV PRN (12:38)
[2020-11-19] MEDS: hydrALAZINE HCL 50 MG TABLET (FP) PO SCH ×2 (13:35→21:00)
[2020-11-19] MEDS: AMINO ACIDS/PROTEIN HYDROLYS 30 ML LIQUID.PKT PO SCH (17:15)
[2020-11-20] MEDS: hydrALAZINE HCL 50 MG TABLET (FP) PO SCH (05:48)
[2020-11-20 06:24] VITALS: BP 142/85; PULSE 90
[2020-11-20 07:05] VITALS: TEMP 98.4
[2020-11-20 07:15] LABS: SARS-CoV-2 NAA Not Detected (Not Detected)
[2020-11-20] MEDS: SEVELAMER CARBONATE 800 MG TAB (FP) PO SCH ×2 (08:37→12:16)
[2020-11-20] MEDS ORDERED: PT OWN MED DRAWER 7, Y5N ONE ×2 (09:11→09:27)
[2020-11-20] MEDS: CALCITRIOL 0.25 MCG CAPSULE (FP) PO SCH (09:18)
[2020-11-20] MEDS: SPIRONOLACTONE 25 MG TABLET PO SCH (09:18)
[2020-11-20] MEDS: ISOSORBIDE MONONITRATE 30 MG TAB.SR.24H (FP) PO SCH (09:18)
[2020-11-20] MEDS: GABAPENTIN 100 MG CAPSULE PO SCH (09:18)
[2020-11-20] MEDS: amLODIPine BESYLATE 10 MG TABLET (FP) PO SCH (09:18)
[2020-11-20] MEDS: CARVEDILOL 25 MG TABLET (FP) PO SCH (09:18)
[2020-11-20] MEDS: SIMETHICONE 80 MG TAB.CHEW (FP) PO SCH (09:18)
[2020-11-20] MEDS: FUROSEMIDE 40 MG TABLET (FP) PO SCH (09:18)
[2020-11-20] MEDS: SACUBITRIL/VALSARTAN 24 MG-26 MG TABLET PO SCH (09:19)
[2020-11-20] MEDS: MINERAL OIL/PET HY-PHL TOPICAL OINTMENT 454 GM JAR TP SCH (09:20)
== END 2020-11-20 13:19 | DRG 356 ==
LOC: JER 23:19 → JERBED 10-30 06:03 → J8W 10-30 23:41
PROVIDERS: ADMIT Internal Medicine; ATTEND Internal Medicine
PROC: 0W9G3ZX Drainage of Peritoneal Cavity, Percutaneous Approach, Diagnostic (ICD-10-PCS; 2020-11-02)
PROC: 0WCG0ZZ Extirpation of Matter from Peritoneal Cavity, Open Approach (ICD-10-PCS; principal; 2020-11-10 09:00)
PROC: 0W9G00Z Drainage of Peritoneal Cavity with Drainage Device, Open Approach (ICD-10-PCS; 2020-11-10 09:00)
PROC: 0W9F4ZX Drainage of Abdominal Wall, Percutaneous Endoscopic Approach, Diagnostic (ICD-10-PCS; 2020-11-10 09:00)
PROC: 5A1D70Z Performance of Urinary Filtration, Intermittent, Less than 6 Hours Per Day (ICD-10-PCS; 2020-11-19)
DX: K65.2 Spontaneous bacterial peritonitis (principal); N18.6 End stage renal disease; I50.22 Chronic systolic (congestive) heart failure; E87.1 Hypo-osmolality and hyponatremia; Z68.1 Body mass index [BMI] 19.9 or less, adult; R18.8 Other ascites; I13.2 Hypertensive heart and chronic kidney disease with heart failure and with stage 5 chronic kidney disease, or end stage renal disease; R64 Cachexia; D63.1 Anemia in chronic kidney disease; R10.9 Unspecified abdominal pain; R11.2 Nausea with vomiting, unspecified; Z99.2 Dependence on renal dialysis; K76.1 Chronic passive congestion of liver; R63.6 Underweight; E87.5 Hyperkalemia; I27.20 Pulmonary hypertension, unspecified; F32.9 Major depressive disorder, single episode, unspecified
CPT/HCPCS: 36415; 71045-TC-FY; 74018-TC-FY; 74019-TC-FY; 74178-TC; 74181-TC; 76942-TC; 80048; 80053; 80061; 80076; 82042; 82150; 82465; 82803; 82945; 82977; 83036; 83516; 83605; 83615; 83690; 83721; 83735; 83880; 83930; 83986; 84080; 84155; 84157; 84165; 84478; 85025; 85027; 85610; 85730; 86038; 86480; 86682; 86753; 86803; 86850; 86900; 86901; 86922; 87070; 87075; 87102; 87116; 87205; 87206; 87210; 87340; 87389; 88108; 88305-TC; 93005; 93010; 93306-TC; 94760; 97116-GP; 97161-GP; 99285-25; C9803; J0131; Q5106; Q9967; U0003; U0005

== ENCOUNTER 2022-03-08 18:23 | Inpatient (IN) | payer OTHER ==
[2022-03-08 21:07] LABS: BASO % 0.8 % (0-2.0); EOS % 1.9 % (0-4.5); HEMATOCRIT 35.8 % (35.4-49); HEMOGLOBIN 12.4 GM/dL (11.7-16.9); LYMPH % 18.1 % (8-40); MCH 32.4 pg (25.7-33.7); MCHC 34.7 g/dl (32.0-35.9); MEAN CELL VOLUME 93.5 fl (80-96); MEAN PLT VOLUME 7.2 fl (7.5-11.1); MONO % 12.2 % (3.8-10.2); PLATELET COUNT 136 10^3/uL (134-434); RBC 3.82 M/mm3 (4.00-5.60); RDW 14.8 % (11.9-15.9); WHITE BLOOD COUNT 6.2 K/mm3 (4.0-10.0)
[2022-03-08 21:18] LABS: INR 1.15 (0.83-1.09); PROTHROMBIN TIME (PATIENT) 13.3 SEC (9.7-13.0)
[2022-03-08 21:19] LABS: ACTIVATED PTT 30.9 SECONDS (25.2-36.5)
[2022-03-08 21:27] LABS: CALCIUM 8.8 mg/dL (8.5-10.1)
[2022-03-08 21:28] LABS: ALBUMIN 3.4 g/dl (3.4-5.0); BLOOD UREA NITROGEN 21.5 mg/dL (7-18)
[2022-03-08 21:31] LABS: CREATININE 6.2 mg/dL (0.55-1.3)
[2022-03-08 21:33] LABS: BILIRUBIN,TOTAL 0.3 mg/dL (0.2-1); TOT PROT 8.5 g/dl (6.4-8.2)
[2022-03-09 03:00] VITALS: RESP 18; BMI 18.6
[2022-03-09] MEDS ORDERED: HEPARIN NA (PORCINE) 5,000 UNITS/ML 1ML VIAL SQ SCH (06:00)
[2022-03-09 08:28] LABS: HEMATOCRIT 33.9 % (35.4-49); HEMOGLOBIN 11.5 GM/dL (11.7-16.9); MCH 31.9 pg (25.7-33.7); MCHC 33.9 g/dl (32.0-35.9); MEAN PLT VOLUME 7.6 fl (7.5-11.1); PLATELET COUNT 139 10^3/uL (134-434); RBC 3.61 M/mm3 (4.00-5.60); RDW 14.7 % (11.9-15.9); WHITE BLOOD COUNT 5.6 K/mm3 (4.0-10.0)
[2022-03-09 08:32] LABS: INR 1.19 (0.83-1.09); PROTHROMBIN TIME (PATIENT) 13.7 SEC (9.7-13.0)
[2022-03-09 08:33] LABS: CHLORIDE 100 mmol/L (98-107); SODIUM 138 mmol/L (136-145)
[2022-03-09 08:34] LABS: ACTIVATED PTT 30.9 SECONDS (25.2-36.5)
[2022-03-09 09:03] LABS: BILIRUBIN,TOTAL 0.3 mg/dL (0.2-1)
[2022-03-09 09:04] LABS: ALK PHOS 234 U/L (45-117); SGPT/ALT 31 U/L (13-61)
[2022-03-09 09:07] LABS: TOT PROT 8.1 g/dl (6.4-8.2)
[2022-03-09 09:15] LABS: ALBUMIN 3.2 g/dl (3.4-5.0); ANION GAP 12 MMOL/L (8-16); BLOOD UREA NITROGEN 31.8 mg/dL (7-18); CALCIUM 8.7 mg/dL (8.5-10.1); CO2 26 mmol/L (21-32); GLUCOSE,RANDOM 97 mg/dL (74-106); MAGNESIUM 2.2 mg/dL (1.8-2.4)
[2022-03-09 09:19] LABS: SGOT/AST 28 U/L (15-37)
[2022-03-09 09:26] LABS: CREATININE 7.7 mg/dL (0.55-1.3)
[2022-03-09] MEDS ORDERED: SACUBITRIL/VALSARTAN 24 MG-26 MG TABLET PO SCH (10:00)
[2022-03-09] MEDS ORDERED: FUROSEMIDE 40 MG TABLET (FP) PO SCH (10:00)
[2022-03-09] MEDS ORDERED: SPIRONOLACTONE 25 MG TABLET PO SCH (10:00)
[2022-03-09] MEDS ORDERED: CARVEDILOL 25 MG TABLET (FP) PO SCH (10:00)
[2022-03-09] MEDS ORDERED: SERTRALINE HCL 50 MG TABLET (FP) PO SCH (10:00)
[2022-03-09] MEDS ORDERED: ISOSORBIDE MONONITRATE 30 MG TAB.SR.24H (FP) PO SCH ×2 (10:00→10:49)
[2022-03-09] MEDS ORDERED: CARVEDILOL 12.5 MG TABLET (FP) PO SCH (10:48)
[2022-03-09 13:54] VITALS: BP 114/69; PULSE 73; TEMP 98.5
== END 2022-03-09 18:00 | DRG 391 ==
LOC: JER 18:23 → JERBED 18:53 → J5S 03-09 02:09
PROVIDERS: ADMIT Internal Medicine; ATTEND Internal Medicine
DX: R19.00 Intra-abdominal and pelvic swelling, mass and lump, unspecified site (principal); N18.6 End stage renal disease; I13.2 Hypertensive heart and chronic kidney disease with heart failure and with stage 5 chronic kidney disease, or end stage renal disease; I50.22 Chronic systolic (congestive) heart failure; F32.A Depression, unspecified
CPT/HCPCS: 0241U-QW; 36415; 74176-TC; 80053; 83735; 84100; 85025; 85027; 85610; 85730; 93005; 93010; 93306-TC; 99285-25

== ENCOUNTER 2022-07-12 20:10 | Inpatient (IN) | payer OTHER ==
[2022-07-12 22:32] LABS: BASO % 1.1 % (0-2.0); EOS % 1.9 % (0-4.5); HEMATOCRIT 34.2 % (35.4-49); HEMOGLOBIN 11.3 GM/dL (11.7-16.9); LYMPH % 15.1 % (8-40); MCH 31.9 pg (25.7-33.7); MEAN CELL VOLUME 96.7 fl (80-96); MEAN PLT VOLUME 7.5 fl (7.5-11.1); MONO % 11.2 % (3.8-10.2); NEUT % 70.7 % (42.8-82.8); PLATELET COUNT 151 10^3/uL (134-434); RBC 3.54 M/mm3 (4.00-5.60); RDW 16.3 % (11.9-15.9); WHITE BLOOD COUNT 6.2 K/mm3 (4.0-10.0)
[2022-07-12 22:39] LABS: INR 1.26 (0.83-1.09); PROTHROMBIN TIME (PATIENT) 14.5 SEC (9.7-13.0)
[2022-07-12] MEDS ORDERED: ACETAMINOPHEN 1000 MG/100 ML BAG IVPB ONE (22:40)
[2022-07-12 22:41] LABS: ACTIVATED PTT 32.4 SECONDS (25.2-36.5)
[2022-07-12] MEDS ORDERED: ACETAMINOPHEN INJECTION 100 ML IVPB ONE (22:43)
[2022-07-12 23:04] LABS: CHLORIDE 99 mmol/L (98-107); SODIUM 138 mmol/L (136-145)
[2022-07-12 23:06] LABS: ALBUMIN 3.1 g/dl (3.4-5.0); ANION GAP 18 MMOL/L (8-16); CALCIUM 8.4 mg/dL (8.5-10.1); CO2 21 mmol/L (21-32); GLUCOSE,RANDOM 126 mg/dL (74-106)
[2022-07-12 23:09] LABS: SGOT/AST 8 U/L (15-37); SGPT/ALT 14 U/L (13-61)
[2022-07-12 23:11] LABS: BILIRUBIN,TOTAL 0.4 mg/dL (0.2-1); TOT PROT 7.7 g/dl (6.4-8.2)
[2022-07-12 23:12] LABS: ALK PHOS 278 U/L (45-117)
[2022-07-12 23:20] LABS: BLOOD UREA NITROGEN 109.9 mg/dL (7-18)
[2022-07-13] MEDS ORDERED: ACETAMINOPHEN 325 MG TABLET (FP) PO PRN (07:17)
[2022-07-13] MEDS ORDERED: SODIUM CHLORIDE 250 ML IV PRN ×2 (08:52→21:38)
[2022-07-13] MEDS: FOLIC ACID 1 MG TABLET (FP) PO SCH (09:21)
[2022-07-13] MEDS: GABAPENTIN 100 MG CAPSULE PO SCH ×2 (09:21→21:22)
[2022-07-13] MEDS: SACUBITRIL/VALSARTAN 24 MG-26 MG TABLET PO SCH ×2 (09:21→21:21)
[2022-07-13] MEDS: ISOSORBIDE MONONITRATE 30 MG TAB.SR.24H (FP) PO SCH (09:21)
[2022-07-13] MEDS: PANTOPRAZOLE 40 MG TABLET PO SCH (09:21)
[2022-07-13] MEDS: SERTRALINE HCL 50 MG TABLET (FP) PO SCH (09:21)
[2022-07-13] MEDS: CARVEDILOL 25 MG TABLET (FP) PO SCH ×2 (09:21→21:22)
[2022-07-13] MEDS: SPIRONOLACTONE 25 MG TABLET PO SCH (09:21)
[2022-07-13 11:47] LABS: BASO % 0.2 % (0-2.0); EOS % 1.3 % (0-4.5); HEMATOCRIT 32.1 % (35.4-49); HEMOGLOBIN 10.5 GM/dL (11.7-16.9); LYMPH % 11.6 % (8-40); MCH 31.7 pg (25.7-33.7); MCHC 32.8 g/dl (32.0-35.9); MEAN CELL VOLUME 96.5 fl (80-96); MEAN PLT VOLUME 8.5 fl (7.5-11.1); MONO % 11.8 % (3.8-10.2); NEUT % 75.1 % (42.8-82.8); PLATELET COUNT 149 10^3/uL (134-434); RBC 3.32 M/mm3 (4.00-5.60); RDW 16.2 % (11.9-15.9); WHITE BLOOD COUNT 5.8 K/mm3 (4.0-10.0)
[2022-07-13 12:14] LABS: CHLORIDE 97 mmol/L (98-107); SODIUM 135 mmol/L (136-145)
[2022-07-13 12:17] LABS: ALBUMIN 2.9 g/dl (3.4-5.0); ANION GAP 18 MMOL/L (8-16); CALCIUM 8.6 mg/dL (8.5-10.1); CO2 20 mmol/L (21-32); GLUCOSE,RANDOM 163 mg/dL (74-106)
[2022-07-13 12:32] LABS: ALK PHOS 269 U/L (45-117); BILIRUBIN,TOTAL 0.4 mg/dL (0.2-1); SGOT/AST 8 U/L (15-37); SGPT/ALT 14 U/L (13-61)
[2022-07-13 12:34] LABS: BLOOD UREA NITROGEN 117.3 mg/dL (7-18); CREATININE 19.4 mg/dL (0.55-1.3)
[2022-07-13] MEDS ORDERED: FUROSEMIDE 40 MG TABLET (FP) PO SCH (16:00)
[2022-07-14] MEDS: SACUBITRIL/VALSARTAN 24 MG-26 MG TABLET PO SCH ×2 (09:05→21:28)
[2022-07-14] MEDS: FOLIC ACID 1 MG TABLET (FP) PO SCH (09:05)
[2022-07-14] MEDS: SPIRONOLACTONE 25 MG TABLET PO SCH (09:05)
[2022-07-14] MEDS: CARVEDILOL 25 MG TABLET (FP) PO SCH (09:05)
[2022-07-14] MEDS: GABAPENTIN 100 MG CAPSULE PO SCH ×2 (09:05→21:27)
[2022-07-14] MEDS: ISOSORBIDE MONONITRATE 30 MG TAB.SR.24H (FP) PO SCH (09:05)
[2022-07-14] MEDS: SERTRALINE HCL 50 MG TABLET (FP) PO SCH (09:06)
[2022-07-14] MEDS: PANTOPRAZOLE 40 MG TABLET PO SCH (09:06)
[2022-07-14] MEDS ORDERED: LIDOCAINE HCL 1%, 10 MG/ML (20ML VIAL) ONE (13:15)
[2022-07-14] MEDS ORDERED: HEPARIN NA (PORCINE) 5,000 UNITS/ML 1ML VIAL ONE ×2 (13:15→15:16)
[2022-07-14] MEDS ORDERED: MIDAZOLAM HCL 2 MG/2 ML SINGLE DOSE VIAL ONE ×2 (13:24→14:17)
[2022-07-14] MEDS ORDERED: FENTANYL CITRATE/PF 50 MCG/ML VIAL ONE ×5 (13:24→16:47)
[2022-07-14] MEDS ORDERED: ALTEPLASE (CATHFLO) 2 MG/2 ML VIAL CVP ONE (13:45)
[2022-07-14] MEDS ORDERED: ONDANSETRON 4 MG/2 ML VIAL ONE (14:13)
[2022-07-14] MEDS ORDERED: ceFAZolin SODIUM 1 GM VIAL ONE (14:15)
[2022-07-14] MEDS ORDERED: ceFAZolin SODIUM 1 GM VIAL IVPB ONE (14:19)
[2022-07-14] MEDS ORDERED: LIDOCAINE HCL 1%, 10 MG/ML (20ML VIAL) NR ONE (14:53)
[2022-07-14 15:13] VITALS: BMI 17.8
[2022-07-14] MEDS ORDERED: POVIDONE-IODINE OINTMENT 10% - 28.4 GM TUBE ONE (15:34)
[2022-07-14] MEDS ORDERED: PROPOFOL 20 ML ONE (15:47)
[2022-07-14] MEDS ORDERED: SODIUM CHLORIDE 250 ML IV PRN ×2 (16:35)
[2022-07-14] MEDS: FENTANYL CITRATE/PF 50 MCG/ML VIAL IVPUSH PRN ×2 (16:38→16:50)
[2022-07-14] MEDS: CARVEDILOL 12.5 MG TABLET (FP) PO SCH (21:28)
[2022-07-14] MEDS: ACETAMINOPHEN 325 MG TABLET (FP) PO PRN (21:30)
[2022-07-15] MEDS: ISOSORBIDE MONONITRATE 30 MG TAB.SR.24H (FP) PO SCH (09:06)
[2022-07-15] MEDS: CARVEDILOL 12.5 MG TABLET (FP) PO SCH ×2 (09:07→21:39)
[2022-07-15] MEDS: SERTRALINE HCL 50 MG TABLET (FP) PO SCH (09:07)
[2022-07-15] MEDS: PANTOPRAZOLE 40 MG TABLET PO SCH (09:07)
[2022-07-15] MEDS: FOLIC ACID 1 MG TABLET (FP) PO SCH (09:07)
[2022-07-15] MEDS: SPIRONOLACTONE 25 MG TABLET PO SCH (09:07)
[2022-07-15] MEDS: SACUBITRIL/VALSARTAN 24 MG-26 MG TABLET PO SCH ×2 (09:07→21:39)
[2022-07-15] MEDS: GABAPENTIN 100 MG CAPSULE PO SCH ×2 (09:07→21:39)
[2022-07-15] MEDS: FUROSEMIDE 40 MG TABLET (FP) PO SCH (16:19)
[2022-07-16] MEDS: SACUBITRIL/VALSARTAN 24 MG-26 MG TABLET PO SCH ×2 (09:17→21:24)
[2022-07-16] MEDS: FOLIC ACID 1 MG TABLET (FP) PO SCH (09:18)
[2022-07-16] MEDS: CARVEDILOL 12.5 MG TABLET (FP) PO SCH ×2 (09:18→21:24)
[2022-07-16] MEDS: GABAPENTIN 100 MG CAPSULE PO SCH ×2 (09:18→21:24)
[2022-07-16] MEDS: PANTOPRAZOLE 40 MG TABLET PO SCH (09:18)
[2022-07-16] MEDS: SERTRALINE HCL 50 MG TABLET (FP) PO SCH (09:18)
[2022-07-16] MEDS: ISOSORBIDE MONONITRATE 30 MG TAB.SR.24H (FP) PO SCH (09:18)
[2022-07-16] MEDS: SPIRONOLACTONE 25 MG TABLET PO SCH (09:18)
[2022-07-16 09:42] LABS: BASO % 0.4 % (0-2.0); EOS % 2.1 % (0-4.5); HEMATOCRIT 22.8 % (35.4-49); HEMOGLOBIN 7.4 GM/dL (11.7-16.9); LYMPH % 12.7 % (8-40); MCH 31.5 pg (25.7-33.7); MCHC 32.6 g/dl (32.0-35.9); MEAN CELL VOLUME 96.4 fl (80-96); MONO % 14.4 % (3.8-10.2); NEUT % 70.4 % (42.8-82.8); PLATELET COUNT 162 10^3/uL (134-434); RBC 2.36 M/mm3 (4.00-5.60); RDW 16.3 % (11.9-15.9); WHITE BLOOD COUNT 5.1 K/mm3 (4.0-10.0)
[2022-07-16 09:59] LABS: CHLORIDE 96 mmol/L (98-107); SODIUM 136 mmol/L (136-145)
[2022-07-16 10:03] LABS: CALCIUM 8.5 mg/dL (8.5-10.1)
[2022-07-16 10:04] LABS: ALBUMIN 2.4 g/dl (3.4-5.0); ANION GAP 14 MMOL/L (8-16); CO2 25 mmol/L (21-32); GLUCOSE,RANDOM 96 mg/dL (74-106)
[2022-07-16 10:07] LABS: PHOSPHOROUS 5.8 mg/dL (2.5-4.9); SGOT/AST 8 U/L (15-37); SGPT/ALT 8 U/L (13-61)
[2022-07-16 10:08] LABS: TOT PROT 6.1 g/dl (6.4-8.2)
[2022-07-16 10:09] LABS: BILIRUBIN,TOTAL 0.5 mg/dL (0.2-1)
[2022-07-16 10:17] LABS: ALK PHOS 179 U/L (45-117); BLOOD UREA NITROGEN 69.3 mg/dL (7-18); CREATININE 14.6 mg/dL (0.55-1.3)
[2022-07-17 08:23] LABS: BASO % 0.4 % (0-2.0); EOS % 2.9 % (0-4.5); HEMATOCRIT 23.9 % (35.4-49); HEMOGLOBIN 7.8 GM/dL (11.7-16.9); LYMPH % 14.7 % (8-40); MCH 31.4 pg (25.7-33.7); MCHC 32.7 g/dl (32.0-35.9); MEAN PLT VOLUME 7.6 fl (7.5-11.1); MONO % 11.3 % (3.8-10.2); NEUT % 70.7 % (42.8-82.8); PLATELET COUNT 189 10^3/uL (134-434); RBC 2.49 M/mm3 (4.00-5.60); RDW 15.9 % (11.9-15.9); WHITE BLOOD COUNT 5.2 K/mm3 (4.0-10.0)
[2022-07-17] MEDS: CARVEDILOL 12.5 MG TABLET (FP) PO SCH ×2 (09:57→22:46)
[2022-07-17] MEDS: SPIRONOLACTONE 25 MG TABLET PO SCH (09:57)
[2022-07-17] MEDS: SERTRALINE HCL 50 MG TABLET (FP) PO SCH (09:58)
[2022-07-17] MEDS: FOLIC ACID 1 MG TABLET (FP) PO SCH (09:58)
[2022-07-17] MEDS: PANTOPRAZOLE 40 MG TABLET PO SCH (09:58)
[2022-07-17] MEDS: ISOSORBIDE MONONITRATE 30 MG TAB.SR.24H (FP) PO SCH (09:58)
[2022-07-17] MEDS: SACUBITRIL/VALSARTAN 24 MG-26 MG TABLET PO SCH ×2 (09:58→22:46)
[2022-07-17] MEDS: GABAPENTIN 100 MG CAPSULE PO SCH ×2 (09:58→22:46)
[2022-07-17] MEDS ORDERED: EPOETIN ALFA-EPBX 10,000 UNIT/ML VIAL IVPUSH ONE (10:00)
[2022-07-18] MEDS: SPIRONOLACTONE 25 MG TABLET PO SCH (11:06)
[2022-07-18] MEDS: PANTOPRAZOLE 40 MG TABLET PO SCH (11:06)
[2022-07-18] MEDS: SERTRALINE HCL 50 MG TABLET (FP) PO SCH (11:06)
[2022-07-18] MEDS: FOLIC ACID 1 MG TABLET (FP) PO SCH (11:06)
[2022-07-18] MEDS: CARVEDILOL 12.5 MG TABLET (FP) PO SCH ×2 (11:06→21:17)
[2022-07-18] MEDS: GABAPENTIN 100 MG CAPSULE PO SCH ×2 (11:06→21:17)
[2022-07-18] MEDS: SACUBITRIL/VALSARTAN 24 MG-26 MG TABLET PO SCH ×2 (11:07→22:01)
[2022-07-18] MEDS: ISOSORBIDE MONONITRATE 30 MG TAB.SR.24H (FP) PO SCH (11:37)
[2022-07-18] MEDS ORDERED: SODIUM CHLORIDE 250 ML IV PRN (12:34)
[2022-07-18] MEDS: FUROSEMIDE 40 MG TABLET (FP) PO SCH (16:49)
[2022-07-19] MEDS: SPIRONOLACTONE 25 MG TABLET PO SCH (09:44)
[2022-07-19] MEDS: ISOSORBIDE MONONITRATE 30 MG TAB.SR.24H (FP) PO SCH (09:44)
[2022-07-19] MEDS: SERTRALINE HCL 50 MG TABLET (FP) PO SCH (09:44)
[2022-07-19] MEDS: PANTOPRAZOLE 40 MG TABLET PO SCH (09:44)
[2022-07-19] MEDS: GABAPENTIN 100 MG CAPSULE PO SCH ×2 (09:44→22:00)
[2022-07-19] MEDS: FOLIC ACID 1 MG TABLET (FP) PO SCH (09:45)
[2022-07-19] MEDS: SACUBITRIL/VALSARTAN 24 MG-26 MG TABLET PO SCH ×2 (09:45→22:00)
[2022-07-19] MEDS: CARVEDILOL 12.5 MG TABLET (FP) PO SCH ×2 (09:45→22:00)
[2022-07-19 12:00] LABS: BASO % 0.7 % (0-2.0); EOS % 3.5 % (0-4.5); HEMATOCRIT 20.7 % (35.4-49); MCH 31.2 pg (25.7-33.7); MCHC 32.7 g/dl (32.0-35.9); MEAN CELL VOLUME 95.4 fl (80-96); MEAN PLT VOLUME 7.4 fl (7.5-11.1); MONO % 12.5 % (3.8-10.2); NEUT % 70.3 % (42.8-82.8); PLATELET COUNT 186 10^3/uL (134-434); RBC 2.17 M/mm3 (4.00-5.60); RDW 15.7 % (11.9-15.9); WHITE BLOOD COUNT 5.1 K/mm3 (4.0-10.0)
[2022-07-19] MEDS: EPOETIN ALFA-EPBX 10,000 UNIT/ML VIAL IVPUSH ONE (12:02)
[2022-07-19 12:18] LABS: HEMOGLOBIN 6.8 GM/dL (11.7-16.9)
[2022-07-20] MEDS: ACETAMINOPHEN 325 MG TABLET (FP) PO PRN ×3 (03:09→21:26)
[2022-07-20] MEDS: SACUBITRIL/VALSARTAN 24 MG-26 MG TABLET PO SCH ×2 (10:03→21:26)
[2022-07-20] MEDS: ISOSORBIDE MONONITRATE 30 MG TAB.SR.24H (FP) PO SCH (10:03)
[2022-07-20] MEDS: GABAPENTIN 100 MG CAPSULE PO SCH ×2 (10:03→21:26)
[2022-07-20] MEDS: FOLIC ACID 1 MG TABLET (FP) PO SCH (10:03)
[2022-07-20] MEDS: PANTOPRAZOLE 40 MG TABLET PO SCH (10:03)
[2022-07-20] MEDS: CARVEDILOL 12.5 MG TABLET (FP) PO SCH ×2 (10:03→21:26)
[2022-07-20] MEDS: SERTRALINE HCL 50 MG TABLET (FP) PO SCH (10:03)
[2022-07-20] MEDS: SPIRONOLACTONE 25 MG TABLET PO SCH (10:03)
[2022-07-20 12:54] LABS: BASO % 0.5 % (0-2.0); EOS % 1.9 % (0-4.5); HEMATOCRIT 28.7 % (35.4-49); HEMOGLOBIN 9.5 GM/dL (11.7-16.9); LYMPH % 8.9 % (8-40); MCH 30.5 pg (25.7-33.7); MCHC 33.1 g/dl (32.0-35.9); MEAN CELL VOLUME 92.4 fl (80-96); MEAN PLT VOLUME 7.5 fl (7.5-11.1); MONO % 11.3 % (3.8-10.2); NEUT % 77.4 % (42.8-82.8); PLATELET COUNT 196 10^3/uL (134-434); RDW 16.5 % (11.9-15.9); WHITE BLOOD COUNT 5.7 K/mm3 (4.0-10.0)
[2022-07-20] MEDS: FUROSEMIDE 40 MG TABLET (FP) PO SCH (17:12)
[2022-07-20] MEDS: EPOETIN ALFA-EPBX 10,000 UNIT/ML VIAL IVPUSH ONE (19:57)
[2022-07-21] MEDS ORDERED: VANCOMYCIN 1 GM in D5W (PRE-DOCKED) 1,000 MG/250 ML IVPB ONE (03:22)
[2022-07-21] MEDS ORDERED: VANCOMYCIN/WATER FOR INJ (PEG) 1,000 MG/200 ML BAG IVPB ONE (04:00)
[2022-07-21] MEDS: PIPERACILLIN/TAZOB 2.25 GM 2.25 GM in DEXTROSE 5%-WATER - 50 ML IVPB SCH ×2 (04:36→11:14)
[2022-07-21] MEDS ORDERED: ACETAMINOPHEN 325 MG TABLET (FP) PO ONE (05:04)
[2022-07-21] MEDS: SERTRALINE HCL 50 MG TABLET (FP) PO SCH (11:13)
[2022-07-21] MEDS: SPIRONOLACTONE 25 MG TABLET PO SCH (11:13)
[2022-07-21] MEDS: SACUBITRIL/VALSARTAN 24 MG-26 MG TABLET PO SCH (11:13)
[2022-07-21] MEDS: CARVEDILOL 12.5 MG TABLET (FP) PO SCH (11:13)
[2022-07-21] MEDS: PANTOPRAZOLE 40 MG TABLET PO SCH (11:13)
[2022-07-21] MEDS: ISOSORBIDE MONONITRATE 30 MG TAB.SR.24H (FP) PO SCH (11:13)
[2022-07-21] MEDS: FOLIC ACID 1 MG TABLET (FP) PO SCH (11:13)
[2022-07-21 11:35] LABS: BASO % 0.4 % (0-2.0); HEMATOCRIT 25.5 % (35.4-49); HEMOGLOBIN 8.4 GM/dL (11.7-16.9); LYMPH % 8.9 % (8-40); MCH 30.8 pg (25.7-33.7); MEAN CELL VOLUME 93.2 fl (80-96); MEAN PLT VOLUME 7.8 fl (7.5-11.1); MONO % 11.7 % (3.8-10.2); PLATELET COUNT 191 10^3/uL (134-434); RBC 2.74 M/mm3 (4.00-5.60); RDW 16.1 % (11.9-15.9); WHITE BLOOD COUNT 6.7 K/mm3 (4.0-10.0)
[2022-07-21] MEDS: GABAPENTIN 100 MG CAPSULE PO SCH (11:51)
[2022-07-21 12:03] LABS: CHLORIDE 99 mmol/L (98-107); SODIUM 138 mmol/L (136-145)
[2022-07-21 12:07] LABS: ANION GAP 12 MMOL/L (8-16); CALCIUM 8.1 mg/dL (8.5-10.1); CO2 27 mmol/L (21-32); GLUCOSE,RANDOM 139 mg/dL (74-106)
[2022-07-21 12:16] LABS: BLOOD UREA NITROGEN 37.2 mg/dL (7-18); CREATININE 10.9 mg/dL (0.55-1.3)
[2022-07-21] MEDS: ACETAMINOPHEN 325 MG TABLET (FP) PO PRN (15:00)
[2022-07-21] MEDS ORDERED: SODIUM CHLORIDE 250 ML IV PRN (16:51)
[2022-07-21] MEDS ORDERED: EPOETIN ALFA-EPBX 10,000 UNIT/ML VIAL SQ ONE (17:30)
[2022-07-22] MEDS: GABAPENTIN 100 MG CAPSULE PO SCH ×3 (00:03→22:04)
[2022-07-22] MEDS: CARVEDILOL 12.5 MG TABLET (FP) PO SCH ×3 (00:03→22:04)
[2022-07-22] MEDS: SACUBITRIL/VALSARTAN 24 MG-26 MG TABLET PO SCH ×3 (00:03→22:04)
[2022-07-22] MEDS: PIPERACILLIN/TAZOB 2.25 GM 2.25 GM in DEXTROSE 5%-WATER - 50 ML IVPB SCH ×4 (01:37→19:36)
[2022-07-22] MEDS: SERTRALINE HCL 50 MG TABLET (FP) PO SCH (10:40)
[2022-07-22] MEDS: SPIRONOLACTONE 25 MG TABLET PO SCH (10:40)
[2022-07-22] MEDS: PANTOPRAZOLE 40 MG TABLET PO SCH (10:41)
[2022-07-22] MEDS: FOLIC ACID 1 MG TABLET (FP) PO SCH (10:41)
[2022-07-22] MEDS: ISOSORBIDE MONONITRATE 30 MG TAB.SR.24H (FP) PO SCH (10:41)
[2022-07-22] MEDS: FUROSEMIDE 40 MG TABLET (FP) PO SCH (15:55)
[2022-07-22] MEDS ORDERED: VANCOMYCIN/WATER FOR INJ (PEG) 1,000 MG/200 ML BAG IVPB ONE (16:33)
[2022-07-22] MEDS ORDERED: PIPERACILLIN/TAZOBACTAM 2.25 GM VIAL IVPB ONE ×2 (17:01→19:02)
[2022-07-23] MEDS: PIPERACILLIN/TAZOB 2.25 GM 2.25 GM in DEXTROSE 5%-WATER - 50 ML IVPB SCH ×3 (02:10→17:11)
[2022-07-23] MEDS: SERTRALINE HCL 50 MG TABLET (FP) PO SCH (09:23)
[2022-07-23] MEDS: SACUBITRIL/VALSARTAN 24 MG-26 MG TABLET PO SCH ×2 (09:23→21:18)
[2022-07-23] MEDS: PANTOPRAZOLE 40 MG TABLET PO SCH (09:23)
[2022-07-23] MEDS: GABAPENTIN 100 MG CAPSULE PO SCH ×2 (09:23→21:18)
[2022-07-23] MEDS: FOLIC ACID 1 MG TABLET (FP) PO SCH (09:23)
[2022-07-23] MEDS: ISOSORBIDE MONONITRATE 30 MG TAB.SR.24H (FP) PO SCH (09:23)
[2022-07-23] MEDS: SPIRONOLACTONE 25 MG TABLET PO SCH (09:23)
[2022-07-23] MEDS: CARVEDILOL 12.5 MG TABLET (FP) PO SCH ×2 (09:23→21:18)
[2022-07-23] MEDS: ACETAMINOPHEN 325 MG TABLET (FP) PO PRN (21:18)
[2022-07-24] MEDS: PIPERACILLIN/TAZOB 2.25 GM 2.25 GM in DEXTROSE 5%-WATER - 50 ML IVPB SCH ×3 (01:25→17:10)
[2022-07-24] MEDS ORDERED: SODIUM CHLORIDE 250 ML IV PRN (07:59)
[2022-07-24] MEDS ORDERED: VANCOMYCIN/WATER FOR INJ (PEG) 1,000 MG/200 ML BAG IVPB ONE (09:00)
[2022-07-24 09:35] LABS: HEMATOCRIT 26.7 % (35.4-49); HEMOGLOBIN 8.6 GM/dL (11.7-16.9); MCH 29.9 pg (25.7-33.7); MEAN CELL VOLUME 93.4 fl (80-96); MEAN PLT VOLUME 7.2 fl (7.5-11.1); PLATELET COUNT 249 10^3/uL (134-434); RBC 2.86 M/mm3 (4.00-5.60); RDW 15.8 % (11.9-15.9); WHITE BLOOD COUNT 7.1 K/mm3 (4.0-10.0)
[2022-07-24 09:55] LABS: CHLORIDE 97 mmol/L (98-107); SODIUM 138 mmol/L (136-145)
[2022-07-24 09:57] LABS: ALBUMIN 2.4 g/dl (3.4-5.0); ANION GAP 16 MMOL/L (8-16); BLOOD UREA NITROGEN 36.7 mg/dL (7-18); CALCIUM 8.6 mg/dL (8.5-10.1); CO2 25 mmol/L (21-32); GLUCOSE,RANDOM 124 mg/dL (74-106)
[2022-07-24 10:00] LABS: SGOT/AST 16 U/L (15-37); SGPT/ALT 17 U/L (13-61)
[2022-07-24] MEDS: SACUBITRIL/VALSARTAN 24 MG-26 MG TABLET PO SCH ×2 (10:00→22:01)
[2022-07-24] MEDS: GABAPENTIN 100 MG CAPSULE PO SCH ×2 (10:00→22:01)
[2022-07-24] MEDS: ISOSORBIDE MONONITRATE 30 MG TAB.SR.24H (FP) PO SCH (10:00)
[2022-07-24] MEDS: PANTOPRAZOLE 40 MG TABLET PO SCH (10:00)
[2022-07-24] MEDS: SERTRALINE HCL 50 MG TABLET (FP) PO SCH (10:00)
[2022-07-24] MEDS: FOLIC ACID 1 MG TABLET (FP) PO SCH (10:00)
[2022-07-24] MEDS: CARVEDILOL 12.5 MG TABLET (FP) PO SCH ×2 (10:00→22:01)
[2022-07-24] MEDS: SPIRONOLACTONE 25 MG TABLET PO SCH (10:00)
[2022-07-24 10:02] LABS: BILIRUBIN,TOTAL 0.5 mg/dL (0.2-1); TOT PROT 6.8 g/dl (6.4-8.2)
[2022-07-24 10:03] LABS: ALK PHOS 184 U/L (45-117)
[2022-07-24 10:04] LABS: CREATININE 12.4 mg/dL (0.55-1.3)
[2022-07-25] MEDS: PIPERACILLIN/TAZOB 2.25 GM 2.25 GM in DEXTROSE 5%-WATER - 50 ML IVPB SCH ×3 (02:24→17:48)
[2022-07-25] MEDS: ISOSORBIDE MONONITRATE 30 MG TAB.SR.24H (FP) PO SCH (10:35)
[2022-07-25] MEDS: CARVEDILOL 12.5 MG TABLET (FP) PO SCH ×2 (10:35→21:50)
[2022-07-25] MEDS: FOLIC ACID 1 MG TABLET (FP) PO SCH (10:35)
[2022-07-25] MEDS: SPIRONOLACTONE 25 MG TABLET PO SCH (10:35)
[2022-07-25] MEDS: SERTRALINE HCL 50 MG TABLET (FP) PO SCH (10:36)
[2022-07-25] MEDS: SACUBITRIL/VALSARTAN 24 MG-26 MG TABLET PO SCH ×2 (10:36→21:50)
[2022-07-25] MEDS: GABAPENTIN 100 MG CAPSULE PO SCH ×2 (10:36→21:50)
[2022-07-25] MEDS: PANTOPRAZOLE 40 MG TABLET PO SCH (10:36)
[2022-07-25] MEDS: FUROSEMIDE 40 MG TABLET (FP) PO SCH (17:47)
[2022-07-26] MEDS: PIPERACILLIN/TAZOB 2.25 GM 2.25 GM in DEXTROSE 5%-WATER - 50 ML IVPB SCH ×3 (01:52→17:30)
[2022-07-26] MEDS: FOLIC ACID 1 MG TABLET (FP) PO SCH (09:12)
[2022-07-26] MEDS: PANTOPRAZOLE 40 MG TABLET PO SCH (09:12)
[2022-07-26] MEDS: GABAPENTIN 100 MG CAPSULE PO SCH ×2 (09:12→21:42)
[2022-07-26] MEDS: ISOSORBIDE MONONITRATE 30 MG TAB.SR.24H (FP) PO SCH (09:12)
[2022-07-26] MEDS: CARVEDILOL 12.5 MG TABLET (FP) PO SCH ×2 (09:12→21:42)
[2022-07-26] MEDS: SERTRALINE HCL 50 MG TABLET (FP) PO SCH (09:12)
[2022-07-26] MEDS: SPIRONOLACTONE 25 MG TABLET PO SCH (09:12)
[2022-07-26] MEDS: SACUBITRIL/VALSARTAN 24 MG-26 MG TABLET PO SCH ×2 (09:16→21:42)
[2022-07-26] MEDS ORDERED: SODIUM CHLORIDE 250 ML IV PRN (12:12)
[2022-07-26] MEDS ORDERED: EPOETIN ALFA-EPBX 10,000 UNIT/ML VIAL IVPUSH ONE (13:00)
[2022-07-26 13:41] VITALS: RESP 18
[2022-07-26 13:53] LABS: HEMATOCRIT 26.1 % (35.4-49); HEMOGLOBIN 8.6 GM/dL (11.7-16.9); MCH 30.9 pg (25.7-33.7); MEAN CELL VOLUME 93.5 fl (80-96); MEAN PLT VOLUME 7.1 fl (7.5-11.1); PLATELET COUNT 256 10^3/uL (134-434); RBC 2.79 M/mm3 (4.00-5.60)
[2022-07-26 14:16] LABS: CHLORIDE 99 mmol/L (98-107); SODIUM 139 mmol/L (136-145)
[2022-07-26 14:18] LABS: CALCIUM 8.2 mg/dL (8.5-10.1)
[2022-07-26 14:19] LABS: ANION GAP 14 MMOL/L (8-16); BLOOD UREA NITROGEN 36.4 mg/dL (7-18); CO2 26 mmol/L (21-32)
[2022-07-26 14:22] LABS: CREATININE 11.2 mg/dL (0.55-1.3); GLUCOSE,RANDOM 111 mg/dL (74-106)
[2022-07-26 16:44] VITALS: BP 144/93; PULSE 88
[2022-07-26 17:37] VITALS: TEMP 98.1
== END 2022-07-26 22:30 | DRG 673 ==
LOC: JER 20:10 → JERBED 07-13 00:03 → J6S 07-13 05:12
PROVIDERS: ADMIT Internal Medicine; ATTEND Internal Medicine
PROC: 06HY33Z Insertion of Infusion Device into Lower Vein, Percutaneous Approach (ICD-10-PCS; 2022-07-13)
PROC: 057Y0ZZ Dilation of Upper Vein, Open Approach (ICD-10-PCS; 2022-07-14)
PROC: 3E03317 Introduction of Other Thrombolytic into Peripheral Vein, Percutaneous Approach (ICD-10-PCS; 2022-07-14)
PROC: 05CY0ZZ Extirpation of Matter from Upper Vein, Open Approach (ICD-10-PCS; principal; 2022-07-14 13:00)
PROC: 30233N1 Transfusion of Nonautologous Red Blood Cells into Peripheral Vein, Percutaneous Approach (ICD-10-PCS; 2022-07-19)
PROC: 5A1D70Z Performance of Urinary Filtration, Intermittent, Less than 6 Hours Per Day (ICD-10-PCS; 2022-07-26)
DX: T82.49XA Other complication of vascular dialysis catheter, initial encounter (principal); J18.9 Pneumonia, unspecified organism; N18.6 End stage renal disease; I13.2 Hypertensive heart and chronic kidney disease with heart failure and with stage 5 chronic kidney disease, or end stage renal disease; K76.1 Chronic passive congestion of liver; D63.1 Anemia in chronic kidney disease; I50.9 Heart failure, unspecified; Z99.2 Dependence on renal dialysis; Y83.9 Surgical procedure, unspecified as the cause of abnormal reaction of the patient, or of later complication, without mention of misadventure at the time of the procedure
CPT/HCPCS: 0241U-QW; 36415; 36430; 71045-TC-FY; 74176-TC; 76000-TC-FY; 76700-TC; 80048; 80053; 83605; 84100; 85025; 85027; 85610; 85730; 86803; 86850; 86900; 86901; 86922; 87040; 87070; 87186; 87205; 87340; 88304-TC; 93005; 93010; 94760; 99285-25; C9803-CS; G0480; J1644; P9058; Q5106; U0003; U0005

== ENCOUNTER 2023-09-17 07:21 | Inpatient (IN) | payer OTHER ==
[2023-09-17 08:15] LABS: CHLORIDE 101 mmol/L (98-107); POTASSIUM 4.6 mmol/L (3.5-5.1); SODIUM 139 mmol/L (136-145)
[2023-09-17 08:17] LABS: ALBUMIN 3.4 g/dl (3.4-5.0); ANION GAP 9 mmol/L (4-13); BLOOD UREA NITROGEN 71.9 mg/dL (7-18); CALCIUM 8.9 mg/dL (8.5-10.1); CO2 29 mmol/L (21-32); GLUCOSE,RANDOM 102 mg/dL (74-106); MAGNESIUM 2.3 mg/dL (1.8-2.4)
[2023-09-17 08:20] LABS: SGOT/AST 9 U/L (15-37); SGPT/ALT 14 U/L (13-61)
[2023-09-17 08:21] LABS: PHOSPHOROUS 5.6 mg/dL (2.5-4.9)
[2023-09-17 08:22] LABS: BILIRUBIN,TOTAL 0.4 mg/dL (0.2-1); TOT PROT 7.6 g/dl (6.4-8.2)
[2023-09-17 08:23] LABS: ALK PHOS 139 U/L (45-117)
[2023-09-17 08:24] LABS: INR 1.25 (0.83-1.09); PROTHROMBIN TIME (PATIENT) 14.5 SEC (9.7-13.0)
[2023-09-17 08:26] LABS: ACTIVATED PTT 29.9 SECONDS (25.2-36.5)
[2023-09-17 08:28] LABS: CREATININE 12.4 mg/dL (0.55-1.3)
[2023-09-17 08:29] LABS: HEMATOCRIT 17.7 % (35.4-49); MCH 31.9 pg (25.7-33.7); MCHC 33.4 g/dl (32.0-35.9); MEAN CELL VOLUME 95.6 fl (80-96); MEAN PLT VOLUME 7.1 fl (7.5-11.1); PLATELET COUNT 158 10^3/uL (134-434); RBC 1.86 M/mm3 (4.00-5.60); WHITE BLOOD COUNT 4.9 K/mm3 (4.0-10.0)
[2023-09-17 08:54] LABS: HEMOGLOBIN 5.9 GM/dL (11.7-16.9)
[2023-09-17 09:56] LABS: ANISOCYTOSIS 2+; MACROCYTOSIS 0
[2023-09-17] MEDS ORDERED: SODIUM CHLORIDE 250 ML IV PRN (10:27)
[2023-09-17 11:42] LABS: IRON SERUM 49 ug/dL (50-175); RETICULOCYTES 2.51 % (0.5-1.5); TOTAL IRON BINDING CAPACITY 147 ug/dL (250-450)
[2023-09-17 17:02] LABS: GAMMA GLUTAMYL TRANSPEPTIDASE 25 U/L (5-85)
[2023-09-17] MEDS ORDERED: CARVEDILOL 12.5 MG TABLET (FP) ONE (22:17)
[2023-09-17] MEDS: CARVEDILOL 25 MG TABLET (FP) PO SCH (22:30)
[2023-09-18 08:30] LABS: BASO % 0.5 % (0-2.0); EOS % 1.8 % (0-4.5); HEMATOCRIT 24.1 % (35.4-49); HEMOGLOBIN 8.3 GM/dL (11.7-16.9); LYMPH % 16.3 % (8-40); MCH 31.5 pg (25.7-33.7); MCHC 34.5 g/dl (32.0-35.9); MEAN CELL VOLUME 91.3 fl (80-96); MEAN PLT VOLUME 7.2 fl (7.5-11.1); MONO % 8.9 % (3.8-10.2); NEUT % 72.5 % (42.8-82.8); PLATELET COUNT 182 10^3/uL (134-434); RBC 2.64 M/mm3 (4.00-5.60); RDW 16.9 % (11.9-15.9); WHITE BLOOD COUNT 5.3 K/mm3 (4.0-10.0)
[2023-09-18 08:43] LABS: CHLORIDE 99 mmol/L (98-107); POTASSIUM 4.3 mmol/L (3.5-5.1); SODIUM 140 mmol/L (136-145)
[2023-09-18 08:45] LABS: CALCIUM 8.7 mg/dL (8.5-10.1)
[2023-09-18 08:46] LABS: ALBUMIN 3.5 g/dl (3.4-5.0); ANION GAP 8 mmol/L (4-13); CO2 33 mmol/L (21-32); GLUCOSE,RANDOM 89 mg/dL (74-106)
[2023-09-18 08:49] LABS: PHOSPHOROUS 5.1 mg/dL (2.5-4.9); SGOT/AST 9 U/L (15-37); SGPT/ALT 18 U/L (13-61)
[2023-09-18 08:51] LABS: BILIRUBIN,TOTAL 0.7 mg/dL (0.2-1)
[2023-09-18 08:52] LABS: ALK PHOS 126 U/L (45-117)
[2023-09-18 09:01] LABS: BLOOD UREA NITROGEN 40.9 mg/dL (7-18); CREATININE 7.9 mg/dL (0.55-1.3)
[2023-09-18] MEDS: CARVEDILOL 12.5 MG TABLET (FP) PO SCH (11:14)
[2023-09-18] MEDS: ISOSORBIDE MONONITRATE 30 MG TAB.SR.24H (FP) PO SCH (11:14)
[2023-09-18 14:32] LABS: CHOLESTEROL 99 mg/dL (50-200)
[2023-09-18 14:34] LABS: LDL CHOLESTEROL (ONLY SJRH) 55 mg/dL (5-100)
[2023-09-18 14:35] LABS: HDL CHOLESTEROL 40 mg/dL (40-60)
[2023-09-18] MEDS: SACUBITRIL/VALSARTAN 24 MG-26 MG TABLET PO SCH (16:51)
[2023-09-19] MEDS ORDERED: SODIUM CHLORIDE 250 ML IV PRN (09:00)
[2023-09-19] MEDS: EPOETIN ALFA-EPBX 10,000 UNIT/ML VIAL SQ ONE (10:54)
[2023-09-20 07:42] LABS: POTASSIUM 3.8 mmol/L (3.5-5.1)
[2023-09-20 07:52] LABS: BASO % 0.6 % (0-2.0); EOS % 1.7 % (0-4.5); HEMATOCRIT 25.7 % (35.4-49); LYMPH % 14.5 % (8-40); MCH 32.7 pg (25.7-33.7); MCHC 35.2 g/dl (32.0-35.9); MEAN CELL VOLUME 92.9 fl (80-96); MEAN PLT VOLUME 7.1 fl (7.5-11.1); MONO % 11.5 % (3.8-10.2); NEUT % 71.7 % (42.8-82.8); PLATELET COUNT 163 10^3/uL (134-434); RBC 2.76 M/mm3 (4.00-5.60); RDW 16.3 % (11.9-15.9); WHITE BLOOD COUNT 5.3 K/mm3 (4.0-10.0)
[2023-09-20 08:00] LABS: ALBUMIN 3.6 g/dl (3.4-5.0); CALCIUM 8.7 mg/dL (8.5-10.1)
[2023-09-20 08:01] LABS: BLOOD UREA NITROGEN 34.4 mg/dL (7-18)
[2023-09-20 08:02] LABS: CREATININE 7.1 mg/dL (0.55-1.3)
[2023-09-20 08:04] LABS: BILIRUBIN,TOTAL 0.7 mg/dL (0.2-1); TOT PROT 8.1 g/dl (6.4-8.2)
[2023-09-20 09:33] VITALS: BMI 16.1
[2023-09-20] MEDS: VITAMIN B COMP W-C 1 EA TABLET (NEPHRO-VITE) PO SCH (09:39)
[2023-09-20] MEDS: ISOSORBIDE MONONITRATE 60 MG TAB.SR.24H (FP) PO ONE (12:12)
[2023-09-20] MEDS: CARVEDILOL 12.5 MG TABLET (FP) PO ONE (12:12)
[2023-09-20] MEDS: amLODIPine BESYLATE 10 MG TABLET (FP) PO ONE (12:12)
[2023-09-20 15:01] VITALS: BP 124/76; PULSE 77; RESP 18; TEMP 98.8
[2023-09-20] MEDS ORDERED: CARVEDILOL 25 MG TABLET (FP) PO SCH (22:00)
[2023-09-21] MEDS ORDERED: ISOSORBIDE MONONITRATE 60 MG TAB.SR.24H (FP) PO SCH (10:00)
== END 2023-09-20 17:00 | DRG 291 ==
LOC: JER 07:21 → JERBED 09:18 → J7W 09-18 06:38
PROVIDERS: ADMIT Internal Medicine; ATTEND Internal Medicine
PROC: 30233N1 Transfusion of Nonautologous Red Blood Cells into Peripheral Vein, Percutaneous Approach (ICD-10-PCS; principal; 2023-09-17)
PROC: 5A1D70Z Performance of Urinary Filtration, Intermittent, Less than 6 Hours Per Day (ICD-10-PCS; 2023-09-19)
DX: I13.2 Hypertensive heart and chronic kidney disease with heart failure and with stage 5 chronic kidney disease, or end stage renal disease (principal); E43 Unspecified severe protein-calorie malnutrition; N18.6 End stage renal disease; Z68.1 Body mass index [BMI] 19.9 or less, adult; D63.1 Anemia in chronic kidney disease; I25.10 Atherosclerotic heart disease of native coronary artery without angina pectoris; I50.9 Heart failure, unspecified; Z99.2 Dependence on renal dialysis
CPT/HCPCS: 36415; 36430; 76700-TC; 80053; 80061; 82272; 82728; 82977; 83036; 83540; 83550; 83735; 84100; 84443; 84466; 85025; 85045; 85610; 85730; 86704; 86803; 86850; 86900; 86901; 86922; 87340; 87517; 93005; 93010; 93306-TC; 99285-25; P9058; Q5106